=== PATIENT | male | born 1970 | race Caucasian/White ===

== ENCOUNTER 2018-06-16 06:53 | Inpatient (IN) | payer MEDICAID ==
[2018-06-16] VITALS (46 sets, daily range): BP systolic 103–160; BP diastolic 53–109
[~2018-06-16] VITALS: Ht 182.9 cm; Wt 90.6 kg
[2018-06-16] MEDS ORDERED: SUCCINYLCHOLINE CHLORIDE 20 MG/ML 10ML VIAL IV ONE ×3 (07:02→07:15)
[2018-06-16] MEDS ORDERED: ETOMIDATE (2MG/ML) 20ML VIAL IV ONE ×3 (07:02→07:15)
[2018-06-16] MEDS ORDERED: PROPOFOL 100 ML IV ONE (07:06)
[2018-06-16] MEDS ORDERED: MIDAZOLAM DRIP 50 mg/50mL 50 ML IV ONE (07:06)
[2018-06-16] MEDS ORDERED: PROPOFOL 100 ML IV SCH (07:08)
[2018-06-16] MEDS ORDERED: MIDAZOLAM DRIP 50 mg/50mL 50 ML IV SCH (07:29)
[2018-06-16 08:29] LABS: Basophils # (auto) 0 uL; Eosinophils # (auto) 0 uL; Nucleated Red Blood Cells % 0.2 %; White Blood Cell 7.4 10^3/uL (4.4-10.8)
[2018-06-16 08:31] LABS: Basophils % (auto) 0.5 % (0.0-2.0); Eosinophils % (auto) 0.1 % (0.0-7.0); Hematocrit 52.7 % (41.0-53.0); Hemoglobin 16.3 g/dL (13.5-17.5); Lymphocytes # (auto) 0.3 uL; Lymphocytes % (auto) 4.6 % (10.0-50.0); Mean Corpuscular Hemoglobin 28.7 pg (28.0-32.0); Mean Corpuscular Volume 92.5 fL (80.0-100.0); Monocytes # (auto) 0.6 uL; Monocytes % (auto) 8.6 % (0.0-12.0); Neutrophils # (auto) 6.4 uL; Neutrophils % (auto) 86.2 % (37.0-80.0); Platelet Count (auto) 135 10^3/uL (140-450); Red Cell Distribution Width 18.2 % (11.8-14.3)
[2018-06-16 08:46] LABS: Alanine Aminotransferase 31 U/L (16-61); Albumin 2.2 g/dL (3.4-5.0); Anion Gap 5 (5-15); Aspartate Aminotransferase 40 U/L (15-37); BUN/Creatinine Ratio 29.3; Blood Alcohol < 3.0 mg/dL (0-5); Blood Urea Nitrogen 29 mg/dL (7-18); Calcium 8.2 mg/dL (8.5-10.1); Chloride 85 mmol/L (98-107); GFR African American 105 mL/min; GFR Non-African American 86 mL/min; Glucose 101 mg/dL (74-106); Potassium 4.9 mmol/L (3.5-5.1); Sodium 135 mmol/L (136-145)
[2018-06-16 08:48] LABS: Carbon Dioxide 45 mmol/L (21-32)
[2018-06-16 08:50] LABS: Alkaline Phosphatase 67 U/L (45-117); Bilirubin, Total 1.1 mg/dL (0.2-1.0); Total Protein 5.9 g/dL (6.4-8.2)
[2018-06-16 09:01] LABS: INR 1.05 (0.9-1.15); Partial Thromboplastin Time 26.1 sec (23.78-33.04); Prothrombin Time 11.2 sec (9.27-12.13)
[2018-06-16 09:03] LABS: Urine Bacteria NONE SEEN /hpf (None Seen); Urine Blood TRACE /uL (Negative); Urine Hyaline Cast MOD /lpf (0 - 2); Urine Mucus FEW (None Seen); Urine Specific Gravity 1.025 (1.001-1.035); Urine WBC 4 /hpf (0 - 3)
[2018-06-16 09:04] LABS: Alcohol, Urine < 3.0 mg/dL (0-5); Amphetamine Screen, Urine POSITIVE (NEGATIVE); Barbiturate Scree,Urine NEGATIVE (NEGATIVE); Benzodiazephine Screen, Urine NEGATIVE (NEGATIVE); Cannabinoid Screen, Urine NEGATIVE (NEGATIVE); Cocaine Screen, Urine NEGATIVE (NEGATIVE); Opiate Scree,Urine NEGATIVE (NEGATIVE); Phencyclidine Screen, Urine NEGATIVE (NEGATIVE)
[2018-06-16] MEDS ORDERED: IOHEXOL 300 MG/ML 100ML BOTTLE IJ ONE (09:54)
[2018-06-16] MEDS ORDERED: NOREPINEPHRINE 8 MG/250ML KIT 250 ML IV ONE (11:00)
[2018-06-16] MEDS ORDERED: ALBUTEROL SULF 2.5 MG/0.5ML(0.5%) NEB SOLN NEB ONE (11:45)
[2018-06-16] MEDS ORDERED: FUROSEMIDE 20 MG/2 ML VIAL IV ONE (11:45)
[2018-06-16] MEDS ORDERED: ENOXAPARIN SOD 150 MG/1 ML SYRINGE SC ONE (12:15)
[2018-06-16] MEDS ORDERED: methylPREDNISolone SOD SUCC 125 MG/2 ML VL IV ONE (12:30)
[2018-06-16] MEDS ORDERED: ACETYLCYSTEINE ORAL for CIN 20%(200MG/ML) 4ML PO ONE (12:30)
[2018-06-16] MEDS ORDERED: PIPERACILLIN-TAZOB 3.375GM 100 ML IV ONE (12:30)
[2018-06-16] MEDS ORDERED: hydrOXYzine HCL 25 MG/ML VL IM ONE (12:30)
[2018-06-16] MEDS ORDERED: IOHEXOL 350 MG/ML 100ML IJ ONE (12:32)
[2018-06-16] MEDS ORDERED: ACETYLCYSTEINE ORAL for CIN 20%(200MG/ML) 4ML GT ONE (13:00)
[2018-06-16] MEDS ORDERED: VANCOMYCIN PER PHARMACY 0 MG IV SCH (13:45)
[2018-06-16] MEDS ORDERED: SODIUM CHLORIDE 0.9% 1,000 ML IV SCH (14:07)
[2018-06-16] MEDS ORDERED: NITROGLYCERIN 0.4 MG SL TAB SL PRN (14:15)
[2018-06-16] MEDS ORDERED: MORPHINE SULF INJ 2 MG/ML SYRINGE 1ML IV PRN ×2 (14:15)
[2018-06-16] MEDS: PROPOFOL 100 ML IV SCH ×2 (17:55→19:35)
[2018-06-16] MEDS: VANCOMYCIN 1GM/250ML 250 ML IV SCH ×2 (17:56→23:00)
[2018-06-16] MEDS: MIDAZOLAM DRIP 50 mg/50mL 50 ML IV SCH ×2 (17:56→21:08)
[2018-06-16] MEDS: IPRATROPIUM BROM 0.5 MG/2.5ML INH SOL NEB SCH (18:38)
[2018-06-16] MEDS: ALBUTEROL SULF 2.5 MG/0.5ML(0.5%) NEB SOLN NEB SCH (18:38)
[2018-06-16] MEDS: ACETAMINOPHEN 650 MG RECT SUPP PR PRN (18:43)
[2018-06-16] MEDS: PIPERACILLIN-TAZOB 3.375GM 100 ML IV SCH (19:10)
[2018-06-17] VITALS (102 sets, daily range): BP systolic 110–165; BP diastolic 51–100
[2018-06-17] MEDS: IPRATROPIUM BROM 0.5 MG/2.5ML INH SOL NEB SCH ×4 (00:55→19:10)
[2018-06-17] MEDS: ALBUTEROL SULF 2.5 MG/0.5ML(0.5%) NEB SOLN NEB SCH ×4 (00:55→19:10)
[2018-06-17] MEDS: MIDAZOLAM DRIP 50 mg/50mL 50 ML IV SCH ×5 (04:02→23:05)
[2018-06-17 04:17] LABS: Basophils # (auto) 0 uL; Basophils % (auto) 0.2 % (0.0-2.0); Eosinophils # (auto) 0 uL; Hematocrit 51.4 % (41.0-53.0); Hemoglobin 16.4 g/dL (13.5-17.5); Lymphocytes # (auto) 0.9 uL; Lymphocytes % (auto) 10.4 % (10.0-50.0); Mean Corpuscular Hemoglobin 28.4 pg (28.0-32.0); Mean Corpuscular Hgb Conc. 31.9 g/dL (32.0-36.0); Monocytes # (auto) 1.2 uL; Monocytes % (auto) 14.5 % (0.0-12.0); Neutrophils # (auto) 6.2 uL; Neutrophils % (auto) 74.9 % (37.0-80.0); Nucleated Red Blood Cells % 0.1 %; Platelet Count (auto) 118 10^3/uL (140-450); Red Blood Cells 5.78 10^6/uL (4.5-5.90); Red Cell Distribution Width 17.7 % (11.8-14.3); White Blood Cell 8.3 10^3/uL (4.4-10.8)
[2018-06-17 04:36] LABS: Albumin 2.3 g/dL (3.4-5.0); BUN/Creatinine Ratio 24.7; Calcium 8.2 mg/dL (8.5-10.1); Potassium 3.4 mmol/L (3.5-5.1)
[2018-06-17 04:39] LABS: Bilirubin, Total 1.1 mg/dL (0.2-1.0); Total Protein 5.2 g/dL (6.4-8.2)
[2018-06-17] MEDS: PIPERACILLIN-TAZOB 3.375GM 100 ML IV SCH ×4 (05:56→18:44)
[2018-06-17] MEDS: VANCOMYCIN 1GM/250ML 250 ML IV SCH ×3 (06:50→23:00)
[2018-06-17] MEDS ORDERED: AMIODARONE HCL 900 MG in DEXTROSE 500 ML IV SCH (08:26)
[2018-06-17] MEDS ORDERED: POTASSIUM CHL 20MEQ/100ML 100 ML IV ONE ×2 (08:30→15:30)
[2018-06-17] MEDS ORDERED: AMIODARONE HCL 150 MG in D5W 5% 100 ML IV ONE (08:30)
[2018-06-17] MEDS ORDERED: MAGNESIUM SULFATE 1GM/100ML 100 ML IV ONE (08:30)
[2018-06-17] MEDS: PROPOFOL 100 ML IV SCH (08:39)
[2018-06-17] MEDS: AMIODARONE HCL 900 MG in DEXTROSE 500 ML IV SCH ×2 (09:06→15:15)
[2018-06-17] MEDS: ENOXAPARIN SOD 40 MG/0.4 ML SYRINGE SC SCH (09:51)
[2018-06-17] MEDS: SPIRONOLACTONE 25 MG TAB PO SCH (09:53)
[2018-06-17] MEDS ORDERED: POTASSIUM CHL 20 Meq TABLET PO SCH (10:00)
[2018-06-17] MEDS: PANTOPRAZOLE 40 MG/10 ML VIAL IV SCH (11:49)
[2018-06-17] MEDS ORDERED: PHENYTOIN IV DILANTIN 1,000 MG in SODIUM CHL 0.9% 250 ML IV ONE (17:30)
[2018-06-17] MEDS ORDERED: LORazepam 2MG/ML-1ML VIAL IV PRN (17:30)
[2018-06-17] MEDS ORDERED: methylPREDNISolone SOD SUCC 125 MG/2 ML VL IV ONE (18:45)
[2018-06-17] MEDS ORDERED: DEXTROSE (50%) 50ML SYRG IV PRN (18:45)
[2018-06-17] MEDS: FUROSEMIDE 40 MG/4 ML VIAL IV SCH (18:45)
[2018-06-17] MEDS: Jevity 1.2 Cal/Fiber 1 Liter GT SCH (20:03)
[2018-06-17] MEDS: METOPROLOL TARTRATE 50 MG TAB PO SCH (22:00)
[2018-06-17] MEDS: InsuLIN REG 1unit/0.01ml Soln (100units/ml) SC SCH (22:00)
[2018-06-17] MEDS: methylPREDNISolone SOD SUCC 125 MG/2 ML VL IV SCH (22:00)
[2018-06-18] VITALS (90 sets, daily range): BP systolic 104–142; BP diastolic 43–100
[2018-06-18] MEDS: ALBUTEROL SULF 2.5 MG/0.5ML(0.5%) NEB SOLN NEB SCH ×4 (00:23→18:09)
[2018-06-18] MEDS: IPRATROPIUM BROM 0.5 MG/2.5ML INH SOL NEB SCH ×4 (00:23→18:09)
[2018-06-18] MEDS: MIDAZOLAM DRIP 50 mg/50mL 50 ML IV SCH ×5 (03:07→20:38)
[2018-06-18 03:53] LABS: Basophils # (auto) 0 uL; Basophils % (auto) 0.1 % (0.0-2.0); Eosinophils # (auto) 0 uL; Eosinophils % (auto) 0.1 % (0.0-7.0); Hematocrit 52.7 % (41.0-53.0); Hemoglobin 16.6 g/dL (13.5-17.5); Lymphocytes # (auto) 0.3 uL; Lymphocytes % (auto) 4.2 % (10.0-50.0); Mean Corpuscular Hemoglobin 27.9 pg (28.0-32.0); Mean Corpuscular Hgb Conc. 31.5 g/dL (32.0-36.0); Mean Corpuscular Volume 88.7 fL (80.0-100.0); Monocytes # (auto) 0.1 uL; Monocytes % (auto) 1.6 % (0.0-12.0); Neutrophils # (auto) 6.2 uL; Nucleated Red Blood Cells % 0.1 %; Platelet Count (auto) 147 10^3/uL (140-450); Red Blood Cells 5.94 10^6/uL (4.5-5.90); Red Cell Distribution Width 17.8 % (11.8-14.3); White Blood Cell 6.6 10^3/uL (4.4-10.8)
[2018-06-18 04:17] LABS: Albumin 2.4 g/dL (3.4-5.0); BUN/Creatinine Ratio 23.4; Bilirubin, Total 1.3 mg/dL (0.2-1.0); Calcium 8.3 mg/dL (8.5-10.1); Potassium 3.8 mmol/L (3.5-5.1)
[2018-06-18] MEDS: PROPOFOL 100 ML IV SCH ×3 (05:05→20:37)
[2018-06-18] MEDS: PIPERACILLIN-TAZOB 3.375GM 100 ML IV SCH ×4 (06:00→18:15)
[2018-06-18] MEDS: FUROSEMIDE 40 MG/4 ML VIAL IV SCH ×2 (06:00→18:10)
[2018-06-18] MEDS: methylPREDNISolone SOD SUCC 125 MG/2 ML VL IV SCH ×3 (06:00→22:18)
[2018-06-18] MEDS: ACCU-CHEK COMFORT CURVE STRIP VI SCH ×4 (06:00→18:00)
[2018-06-18] MEDS: InsuLIN REG 1unit/0.01ml Soln (100units/ml) SC SCH ×3 (06:00→18:05)
[2018-06-18] MEDS: VANCOMYCIN 1GM/250ML 250 ML IV SCH (07:00)
[2018-06-18] MEDS: METOPROLOL TARTRATE 50 MG TAB PO SCH (10:00)
[2018-06-18] MEDS: ENOXAPARIN SOD 40 MG/0.4 ML SYRINGE SC SCH (10:14)
[2018-06-18] MEDS: PANTOPRAZOLE 40 MG/10 ML VIAL IV SCH (10:14)
[2018-06-18] MEDS: POTASSIUM EFFERVESENT TAB 25 MEQ GT SCH (10:14)
[2018-06-18] MEDS: SPIRONOLACTONE 25 MG TAB PO SCH (10:15)
[2018-06-18] MEDS: VANCOMYCIN 1,500 MG in D5W 5% 250 ML IV SCH ×2 (10:27→22:19)
[2018-06-18] MEDS ORDERED: DEXTROSE (50%) 50ML SYRG IV PRN (12:00)
[2018-06-18] MEDS: METOPROLOL TARTRATE 25 MG TAB PO SCH (22:18)
[2018-06-19] VITALS (108 sets, daily range): BP systolic 109–163; BP diastolic 49–103
[2018-06-19] MEDS: ALBUTEROL SULF 2.5 MG/0.5ML(0.5%) NEB SOLN NEB SCH ×4 (00:26→18:27)
[2018-06-19] MEDS: MIDAZOLAM DRIP 50 mg/50mL 50 ML IV SCH ×7 (00:26→21:26)
[2018-06-19] MEDS: IPRATROPIUM BROM 0.5 MG/2.5ML INH SOL NEB SCH ×4 (00:26→18:27)
[2018-06-19] MEDS: PIPERACILLIN-TAZOB 3.375GM 100 ML IV SCH ×4 (00:26→18:00)
[2018-06-19] MEDS: ACCU-CHEK COMFORT CURVE STRIP VI SCH ×5 (00:30→23:58)
[2018-06-19] MEDS: InsuLIN REG 1unit/0.01ml Soln (100units/ml) SC SCH ×4 (00:33→18:37)
[2018-06-19] MEDS: PROPOFOL 100 ML IV SCH ×6 (01:24→21:27)
[2018-06-19 02:29] LABS: Basophils # (auto) 0.2 uL; Basophils % (auto) 1.2 % (0.0-2.0); Eosinophils # (auto) 0 uL; Hematocrit 52.7 % (41.0-53.0); Hemoglobin 16.8 g/dL (13.5-17.5); Lymphocytes # (auto) 0.3 uL; Lymphocytes % (auto) 2.4 % (10.0-50.0); Mean Corpuscular Hemoglobin 28.3 pg (28.0-32.0); Mean Corpuscular Hgb Conc. 31.8 g/dL (32.0-36.0); Mean Corpuscular Volume 89.1 fL (80.0-100.0); Monocytes # (auto) 0.5 uL; Monocytes % (auto) 4.1 % (0.0-12.0); Neutrophils # (auto) 12.1 uL; Neutrophils % (auto) 92.3 % (37.0-80.0); Nucleated Red Blood Cells % 0.1 %; Platelet Count (auto) 142 10^3/uL (140-450); Red Blood Cells 5.92 10^6/uL (4.5-5.90); Red Cell Distribution Width 17.6 % (11.8-14.3); White Blood Cell 13.1 10^3/uL (4.4-10.8)
[2018-06-19 02:46] LABS: Albumin 2.1 g/dL (3.4-5.0); Calcium 8.2 mg/dL (8.5-10.1); Potassium 4.3 mmol/L (3.5-5.1)
[2018-06-19 02:48] LABS: Bilirubin, Total 0.9 mg/dL (0.2-1.0)
[2018-06-19] MEDS: methylPREDNISolone SOD SUCC 125 MG/2 ML VL IV SCH ×3 (06:29→21:37)
[2018-06-19] MEDS: FUROSEMIDE 40 MG/4 ML VIAL IV SCH (06:29)
[2018-06-19] MEDS: POTASSIUM EFFERVESENT TAB 25 MEQ GT SCH (11:10)
[2018-06-19] MEDS: VANCOMYCIN 1,500 MG in D5W 5% 250 ML IV SCH ×2 (11:11→22:12)
[2018-06-19] MEDS: LEVOFLOXACIN 750MG 150 ML IV SCH (11:11)
[2018-06-19] MEDS: PANTOPRAZOLE 40 MG/10 ML VIAL IV SCH (11:11)
[2018-06-19] MEDS: METOPROLOL TARTRATE 25 MG TAB PO SCH ×2 (11:12→21:37)
[2018-06-19] MEDS: ENOXAPARIN SOD 40 MG/0.4 ML SYRINGE SC SCH (11:12)
[2018-06-19] MEDS ORDERED: SODIUM CHL 0.9% IV SCH (11:15)
[2018-06-19] MEDS ORDERED: [UNRECOGNIZED DRUG - OTHER] IV SCH (11:15)
[2018-06-19] MEDS ORDERED: THIAMINE INJ 100 MG, MULTIPLE VITAMIN 10 ML, FOLIC ACID 1 MG, MAGNESIUM SULF SDV 50% 8 ... IV SCH ×5 (12:00)
[2018-06-19] MEDS: FUROSEMIDE INJECTION 100 MG in D5W 5% 90 ML IV SCH (16:45)
[2018-06-19] MEDS: SPIRONOLACTONE 25 MG TAB PO SCH (18:01)
[2018-06-20] VITALS (107 sets, daily range): BP systolic 94–154; BP diastolic 36–94
[2018-06-20] MEDS: InsuLIN REG 1unit/0.01ml Soln (100units/ml) SC SCH ×5 (00:07→23:36)
[2018-06-20] MEDS: PIPERACILLIN-TAZOB 3.375GM 100 ML IV SCH ×5 (00:14→23:32)
[2018-06-20] MEDS: ALBUTEROL SULF 2.5 MG/0.5ML(0.5%) NEB SOLN NEB SCH ×4 (00:16→18:30)
[2018-06-20] MEDS: IPRATROPIUM BROM 0.5 MG/2.5ML INH SOL NEB SCH ×4 (00:17→18:30)
[2018-06-20] MEDS: MIDAZOLAM DRIP 50 mg/50mL 50 ML IV SCH ×6 (00:27→21:13)
[2018-06-20] MEDS: PROPOFOL 100 ML IV SCH ×6 (01:25→22:42)
[2018-06-20 04:02] LABS: Basophils # (auto) 0 uL; Basophils % (auto) 0.1 % (0.0-2.0); Eosinophils # (auto) 0 uL; Hemoglobin 16.3 g/dL (13.5-17.5); Lymphocytes # (auto) 0.3 uL; Lymphocytes % (auto) 2.6 % (10.0-50.0); Mean Corpuscular Hemoglobin 28.5 pg (28.0-32.0); Mean Corpuscular Hgb Conc. 31.9 g/dL (32.0-36.0); Mean Corpuscular Volume 89.5 fL (80.0-100.0); Monocytes # (auto) 0.7 uL; Monocytes % (auto) 7.2 % (0.0-12.0); Neutrophils # (auto) 9.2 uL; Neutrophils % (auto) 90.1 % (37.0-80.0); Platelet Count (auto) 147 10^3/uL (140-450); Red Cell Distribution Width 17.7 % (11.8-14.3); White Blood Cell 10.2 10^3/uL (4.4-10.8)
[2018-06-20 04:24] LABS: Potassium 4.7 mmol/L (3.5-5.1)
[2018-06-20 04:27] LABS: Albumin 2.1 g/dL (3.4-5.0); BUN/Creatinine Ratio 33.7
[2018-06-20 04:30] LABS: Bilirubin, Total 0.9 mg/dL (0.2-1.0); Total Protein 5.8 g/dL (6.4-8.2)
[2018-06-20] MEDS: ACCU-CHEK COMFORT CURVE STRIP VI SCH ×3 (05:52→17:52)
[2018-06-20] MEDS: methylPREDNISolone SOD SUCC 125 MG/2 ML VL IV SCH ×3 (05:59→21:09)
[2018-06-20] MEDS: SPIRONOLACTONE 25 MG TAB PO SCH ×2 (06:00→17:51)
[2018-06-20] MEDS: ENOXAPARIN SOD 40 MG/0.4 ML SYRINGE SC SCH (10:01)
[2018-06-20] MEDS: POTASSIUM EFFERVESENT TAB 25 MEQ GT SCH (10:01)
[2018-06-20] MEDS: PANTOPRAZOLE 40 MG/10 ML VIAL IV SCH (10:01)
[2018-06-20] MEDS: DIGOXIN 0.25 MG TAB PO SCH (10:02)
[2018-06-20] MEDS: METOPROLOL TARTRATE 25 MG TAB PO SCH ×2 (10:02→21:10)
[2018-06-20] MEDS: LEVOFLOXACIN 750MG 150 ML IV SCH (10:17)
[2018-06-20] MEDS: VANCOMYCIN 1,500 MG in D5W 5% 250 ML IV SCH ×2 (10:54→21:32)
[2018-06-20] MEDS: FUROSEMIDE INJECTION 100 MG in D5W 5% 90 ML IV SCH (12:17)
[2018-06-21] VITALS (105 sets, daily range): BP systolic 109–155; BP diastolic 46–95
[2018-06-21] MEDS: IPRATROPIUM BROM 0.5 MG/2.5ML INH SOL NEB SCH ×5 (00:21→18:33)
[2018-06-21] MEDS: ALBUTEROL SULF 2.5 MG/0.5ML(0.5%) NEB SOLN NEB SCH ×5 (00:21→18:33)
[2018-06-21] MEDS: MIDAZOLAM DRIP 50 mg/50mL 50 ML IV SCH ×6 (01:28→23:52)
[2018-06-21] MEDS: PROPOFOL 100 ML IV SCH ×5 (01:57→18:22)
[2018-06-21 04:02] LABS: Basophils # (auto) 0 uL; Basophils % (auto) 0.2 % (0.0-2.0); Eosinophils # (auto) 0 uL; Eosinophils % (auto) 0.1 % (0.0-7.0); Hemoglobin 16.8 g/dL (13.5-17.5); Lymphocytes # (auto) 0.6 uL; Lymphocytes % (auto) 6.1 % (10.0-50.0); Mean Corpuscular Hgb Conc. 32.4 g/dL (32.0-36.0); Mean Corpuscular Volume 89.5 fL (80.0-100.0); Monocytes # (auto) 1.3 uL; Monocytes % (auto) 13.2 % (0.0-12.0); Neutrophils % (auto) 80.4 % (37.0-80.0); Nucleated Red Blood Cells % 0.1 %; Platelet Count (auto) 151 10^3/uL (140-450); Red Blood Cells 5.81 10^6/uL (4.5-5.90); Red Cell Distribution Width 17.4 % (11.8-14.3); White Blood Cell 9.9 10^3/uL (4.4-10.8)
[2018-06-21 04:17] LABS: Albumin 2.3 g/dL (3.4-5.0); Calcium 8.2 mg/dL (8.5-10.1); Potassium 4.4 mmol/L (3.5-5.1)
[2018-06-21 04:21] LABS: BUN/Creatinine Ratio 32.1; Bilirubin, Total 0.7 mg/dL (0.2-1.0); Total Protein 5.9 g/dL (6.4-8.2)
[2018-06-21] MEDS: SPIRONOLACTONE 25 MG TAB PO SCH ×2 (05:15→18:07)
[2018-06-21] MEDS: methylPREDNISolone SOD SUCC 125 MG/2 ML VL IV SCH ×3 (05:15→22:00)
[2018-06-21] MEDS: ACCU-CHEK COMFORT CURVE STRIP VI SCH ×5 (05:15→23:52)
[2018-06-21] MEDS: InsuLIN REG 1unit/0.01ml Soln (100units/ml) SC SCH ×4 (05:15→23:53)
[2018-06-21] MEDS: PIPERACILLIN-TAZOB 3.375GM 100 ML IV SCH ×4 (05:15→23:52)
[2018-06-21] MEDS: POTASSIUM EFFERVESENT TAB 25 MEQ GT SCH (10:00)
[2018-06-21] MEDS: PANTOPRAZOLE 40 MG/10 ML VIAL IV SCH (10:20)
[2018-06-21] MEDS: ENOXAPARIN SOD 40 MG/0.4 ML SYRINGE SC SCH (10:21)
[2018-06-21] MEDS: METOPROLOL TARTRATE 25 MG TAB PO SCH ×2 (10:23→22:00)
[2018-06-21] MEDS: DIGOXIN 0.25 MG TAB PO SCH (10:24)
[2018-06-21] MEDS: VANCOMYCIN 1,500 MG in D5W 5% 250 ML IV SCH ×2 (10:42→22:00)
[2018-06-21] MEDS ORDERED: AMIODARONE HCL 150 MG in D5W 5% 100 ML IV ONE (11:00)
[2018-06-21] MEDS ORDERED: AMIODARONE HCL 900 MG in DEXTROSE 500 ML IV SCH ×2 (11:03→17:03)
[2018-06-21] MEDS: Jevity 1.2 Cal/Fiber 1 Liter GT SCH (12:03)
[2018-06-21] MEDS: LEVOFLOXACIN 750MG 150 ML IV SCH (13:31)
[2018-06-21] MEDS: FUROSEMIDE INJECTION 100 MG in D5W 5% 90 ML IV SCH ×2 (13:45→19:00)
[2018-06-21] MEDS: fentaNYL Drip 2500mCg/250mlNS 250 ML IV SCH (21:00)
[2018-06-21] MEDS: AMIODARONE HCL 200 MG TAB PO SCH (22:00)
[2018-06-22] VITALS (101 sets, daily range): BP systolic 100–149; BP diastolic 41–79
[2018-06-22] MEDS: ALBUTEROL SULF 2.5 MG/0.5ML(0.5%) NEB SOLN NEB SCH ×4 (00:15→18:37)
[2018-06-22] MEDS: IPRATROPIUM BROM 0.5 MG/2.5ML INH SOL NEB SCH ×4 (00:15→18:37)
[2018-06-22] MEDS: MIDAZOLAM DRIP 50 mg/50mL 50 ML IV SCH ×4 (03:00→22:30)
[2018-06-22 04:44] LABS: Basophils # (auto) 0 uL; Basophils % (auto) 0.1 % (0.0-2.0); Eosinophils # (auto) 0 uL; Hematocrit 52.4 % (41.0-53.0); Hemoglobin 16.8 g/dL (13.5-17.5); Lymphocytes # (auto) 0.2 uL; Mean Corpuscular Hgb Conc. 32.1 g/dL (32.0-36.0); Mean Corpuscular Volume 90.5 fL (80.0-100.0); Monocytes # (auto) 0.6 uL; Monocytes % (auto) 8.2 % (0.0-12.0); Neutrophils # (auto) 6.6 uL; Neutrophils % (auto) 88.7 % (37.0-80.0); Nucleated Red Blood Cells % 0.1 %; Platelet Count (auto) 155 10^3/uL (140-450); Red Blood Cells 5.79 10^6/uL (4.5-5.90); Red Cell Distribution Width 17.9 % (11.8-14.3); White Blood Cell 7.4 10^3/uL (4.4-10.8)
[2018-06-22 04:59] LABS: Albumin 2.4 g/dL (3.4-5.0); Calcium 8.5 mg/dL (8.5-10.1); Potassium 4.5 mmol/L (3.5-5.1)
[2018-06-22 05:08] LABS: BUN/Creatinine Ratio 44.6; Bilirubin, Total 0.8 mg/dL (0.2-1.0); Total Protein 6.1 g/dL (6.4-8.2)
[2018-06-22] MEDS: methylPREDNISolone SOD SUCC 125 MG/2 ML VL IV SCH ×3 (06:15→22:04)
[2018-06-22] MEDS: PIPERACILLIN-TAZOB 3.375GM 100 ML IV SCH ×3 (06:15→17:28)
[2018-06-22] MEDS: SPIRONOLACTONE 25 MG TAB PO SCH ×2 (06:16→17:28)
[2018-06-22] MEDS: InsuLIN REG 1unit/0.01ml Soln (100units/ml) SC SCH ×3 (06:16→17:42)
[2018-06-22] MEDS: ACCU-CHEK COMFORT CURVE STRIP VI SCH ×3 (06:16→17:28)
[2018-06-22] MEDS: PANTOPRAZOLE 40 MG/10 ML VIAL IV SCH (09:53)
[2018-06-22] MEDS: THIAMINE 100mg/ml INJ (200mg/2ml VIAL) IV SCH (09:53)
[2018-06-22] MEDS: POTASSIUM EFFERVESENT TAB 25 MEQ GT SCH (09:53)
[2018-06-22] MEDS: LEVOFLOXACIN 750MG 150 ML IV SCH (09:53)
[2018-06-22] MEDS: METOPROLOL TARTRATE 25 MG TAB PO SCH ×2 (09:54→22:00)
[2018-06-22] MEDS: ENOXAPARIN SOD 40 MG/0.4 ML SYRINGE SC SCH (09:54)
[2018-06-22] MEDS: AMIODARONE HCL 200 MG TAB PO SCH ×2 (09:54→22:05)
[2018-06-22] MEDS: DIGOXIN 0.125 MG TAB PO SCH (09:54)
[2018-06-22] MEDS: Jevity 1.2 Cal/Fiber 1 Liter GT SCH (10:18)
[2018-06-22] MEDS: VANCOMYCIN 1,500 MG in D5W 5% 250 ML IV SCH ×2 (11:36→22:06)
[2018-06-22] MEDS ORDERED: FUROSEMIDE 40 MG/4 ML VIAL IV ONE (13:00)
[2018-06-22] MEDS: fentaNYL Drip 2500mCg/250mlNS 250 ML IV SCH (17:28)
[2018-06-22] MEDS: FUROSEMIDE INJECTION 100 MG in D5W 5% 90 ML IV SCH (19:00)
[2018-06-23] VITALS (97 sets, daily range): BP systolic 102–137; BP diastolic 39–91
[2018-06-23] MEDS: PIPERACILLIN-TAZOB 3.375GM 100 ML IV SCH ×2 (00:04→06:26)
[2018-06-23] MEDS: ALBUTEROL SULF 2.5 MG/0.5ML(0.5%) NEB SOLN NEB SCH ×4 (00:07→17:55)
[2018-06-23] MEDS: IPRATROPIUM BROM 0.5 MG/2.5ML INH SOL NEB SCH ×4 (00:07→17:55)
[2018-06-23] MEDS: InsuLIN REG 1unit/0.01ml Soln (100units/ml) SC SCH ×4 (00:10→23:57)
[2018-06-23] MEDS: ACCU-CHEK COMFORT CURVE STRIP VI SCH ×4 (00:10→23:57)
[2018-06-23] MEDS: MIDAZOLAM DRIP 50 mg/50mL 50 ML IV SCH ×5 (01:43→20:15)
[2018-06-23] MEDS: Jevity 1.2 Cal/Fiber 1 Liter GT SCH ×2 (03:07→22:00)
[2018-06-23 04:38] LABS: Calcium 8.5 mg/dL (8.5-10.1); Potassium 4.3 mmol/L (3.5-5.1)
[2018-06-23 04:42] LABS: BUN/Creatinine Ratio 54.2
[2018-06-23] MEDS: SPIRONOLACTONE 25 MG TAB PO SCH (06:26)
[2018-06-23] MEDS: methylPREDNISolone SOD SUCC 125 MG/2 ML VL IV SCH ×3 (06:26→22:23)
[2018-06-23] MEDS: PROPOFOL 100 ML IV SCH (07:52)
[2018-06-23] MEDS: PANTOPRAZOLE 40 MG/10 ML VIAL IV SCH (11:04)
[2018-06-23] MEDS: fentaNYL Drip 2500mCg/250mlNS 250 ML IV SCH ×2 (11:12→23:00)
[2018-06-23] MEDS: THIAMINE 100mg/ml INJ (200mg/2ml VIAL) IV SCH (11:13)
[2018-06-23] MEDS: BUMETANIDE (0.25 MG/ML) INJ 10ML IV SCH (11:14)
[2018-06-23] MEDS: ENOXAPARIN SOD 40 MG/0.4 ML SYRINGE SC SCH (11:14)
[2018-06-23] MEDS: DIGOXIN 0.125 MG TAB PO SCH (11:15)
[2018-06-23] MEDS: LEVOFLOXACIN 750MG 150 ML IV SCH (11:15)
[2018-06-23] MEDS: METOPROLOL TARTRATE 25 MG TAB PO SCH ×2 (11:15→21:57)
[2018-06-23] MEDS: POTASSIUM EFFERVESENT TAB 25 MEQ GT SCH (11:16)
[2018-06-23 17:08] LABS: INR 0.97 (0.9-1.15); Partial Thromboplastin Time 25.4 sec (23.78-33.04); Prothrombin Time 10.4 sec (9.27-12.13)
[2018-06-23] MEDS: AMIODARONE HCL 200 MG TAB PO SCH (21:59)
[2018-06-23] MEDS ORDERED: AMIODARONE HCL 200 MG TAB PO SCH (22:00)
[2018-06-24] VITALS (106 sets, daily range): BP systolic 101–161; BP diastolic 39–101
[2018-06-24] MEDS: MIDAZOLAM DRIP 50 mg/50mL 50 ML IV SCH ×6 (00:06→21:09)
[2018-06-24] MEDS: ALBUTEROL SULF 2.5 MG/0.5ML(0.5%) NEB SOLN NEB SCH ×5 (00:38→22:04)
[2018-06-24] MEDS: IPRATROPIUM BROM 0.5 MG/2.5ML INH SOL NEB SCH ×5 (00:38→22:04)
[2018-06-24 04:08] LABS: Basophils # (auto) 0 uL; Basophils % (auto) 0.1 % (0.0-2.0); Eosinophils # (auto) 0 uL; Hematocrit 49.3 % (41.0-53.0); Hemoglobin 16.1 g/dL (13.5-17.5); Lymphocytes # (auto) 0.3 uL; Lymphocytes % (auto) 3.6 % (10.0-50.0); Mean Corpuscular Hemoglobin 29.1 pg (28.0-32.0); Mean Corpuscular Hgb Conc. 32.6 g/dL (32.0-36.0); Mean Corpuscular Volume 89.4 fL (80.0-100.0); Monocytes # (auto) 0.6 uL; Monocytes % (auto) 7.6 % (0.0-12.0); Neutrophils # (auto) 7.2 uL; Neutrophils % (auto) 88.7 % (37.0-80.0); Nucleated Red Blood Cells % 0.1 %; Platelet Count (auto) 192 10^3/uL (140-450); Red Blood Cells 5.52 10^6/uL (4.5-5.90); Red Cell Distribution Width 17.5 % (11.8-14.3); White Blood Cell 8.1 10^3/uL (4.4-10.8)
[2018-06-24 04:30] LABS: Albumin 2.4 g/dL (3.4-5.0); BUN/Creatinine Ratio 53.8; Calcium 8.5 mg/dL (8.5-10.1); Potassium 4.5 mmol/L (3.5-5.1)
[2018-06-24 04:33] LABS: Bilirubin, Total 0.8 mg/dL (0.2-1.0); Total Protein 5.7 g/dL (6.4-8.2)
[2018-06-24] MEDS: ACCU-CHEK COMFORT CURVE STRIP VI SCH ×3 (05:34→18:40)
[2018-06-24] MEDS: methylPREDNISolone SOD SUCC 125 MG/2 ML VL IV SCH ×3 (05:34→22:30)
[2018-06-24] MEDS: SPIRONOLACTONE 25 MG TAB PO SCH ×2 (05:34→18:43)
[2018-06-24] MEDS: InsuLIN REG 1unit/0.01ml Soln (100units/ml) SC SCH ×3 (05:46→18:40)
[2018-06-24] MEDS: PROPOFOL 100 ML IV SCH (08:19)
[2018-06-24] MEDS ORDERED: FLUMAZENIL 0.1 MG/ML INJ 10ML MDV IV ONE (08:23)
[2018-06-24] MEDS ORDERED: LIDOCAINE 2% (LOCAL ANESTH.) PF 5ml SDV ONE (08:23)
[2018-06-24] MEDS ORDERED: HYDROmorphone HCL 2 MG/ML VL ONE (08:23)
[2018-06-24] MEDS ORDERED: NALOXONE HCL 0.4 MG/ML VIAL ONE (08:23)
[2018-06-24] MEDS ORDERED: SODIUM CHLORIDE LOCK 30 ML ONE (08:23)
[2018-06-24] MEDS ORDERED: EPINEPHrine HCL 1 MG/1 ML AMP ONE (08:24)
[2018-06-24] MEDS ORDERED: GLYCOPYRROLATE 0.2 MG/ML 1ML VIAL ONE (08:24)
[2018-06-24] MEDS ORDERED: MIDAZOLAM HCL 5 MG/ML-1ML VIAL ONE (08:24)
[2018-06-24] MEDS ORDERED: LIDOCAINE HCL 2% TOP JELLY 5ML TOP ONE ×2 (08:25→08:40)
[2018-06-24] MEDS: THIAMINE 100mg/ml INJ (200mg/2ml VIAL) IV SCH (11:51)
[2018-06-24] MEDS: POTASSIUM EFFERVESENT TAB 25 MEQ GT SCH (11:51)
[2018-06-24] MEDS: PANTOPRAZOLE 40 MG/10 ML VIAL IV SCH (11:52)
[2018-06-24] MEDS: LEVOFLOXACIN 750MG 150 ML IV SCH (11:52)
[2018-06-24] MEDS: BUMETANIDE (0.25 MG/ML) INJ 10ML IV SCH (11:52)
[2018-06-24] MEDS: DIGOXIN 0.125 MG TAB PO SCH (13:09)
[2018-06-24] MEDS: AMIODARONE HCL 200 MG TAB PO SCH ×2 (13:09→22:00)
[2018-06-24] MEDS: ACETYLCYSTEINE 20%(200MG/ML) SOL 4ML NEB SCH ×3 (14:18→22:05)
[2018-06-24] MEDS: METOPROLOL TARTRATE 25 MG TAB PO SCH ×2 (14:43→22:00)
[2018-06-24 21:17] LABS: Magnesium 2.3 mg/dL (1.6-2.6); Potassium 4.6 mmol/L (3.5-5.1)
[2018-06-24] MEDS: fentaNYL Drip 2500mCg/250mlNS 250 ML IV SCH (22:00)
[2018-06-25] VITALS (102 sets, daily range): BP systolic 104–145; BP diastolic 39–83
[2018-06-25] MEDS: ACCU-CHEK COMFORT CURVE STRIP VI SCH ×5 (00:29→23:58)
[2018-06-25] MEDS: NOREPINEPHRINE 8 MG/250ML KIT 250 ML IV SCH (01:00)
[2018-06-25] MEDS: ALBUTEROL SULF 2.5 MG/0.5ML(0.5%) NEB SOLN NEB SCH ×6 (02:18→22:08)
[2018-06-25] MEDS: ACETYLCYSTEINE 20%(200MG/ML) SOL 4ML NEB SCH ×6 (02:18→22:08)
[2018-06-25] MEDS: IPRATROPIUM BROM 0.5 MG/2.5ML INH SOL NEB SCH ×6 (02:18→22:08)
[2018-06-25 05:35] LABS: Basophils # (auto) 0 uL; Basophils % (auto) 0.4 % (0.0-2.0); Eosinophils # (auto) 0 uL; Hematocrit 50.8 % (41.0-53.0); Hemoglobin 16.2 g/dL (13.5-17.5); Lymphocytes # (auto) 0.3 uL; Lymphocytes % (auto) 2.8 % (10.0-50.0); Mean Corpuscular Hemoglobin 28.7 pg (28.0-32.0); Mean Corpuscular Hgb Conc. 31.9 g/dL (32.0-36.0); Mean Corpuscular Volume 90.2 fL (80.0-100.0); Monocytes # (auto) 0.8 uL; Monocytes % (auto) 8.8 % (0.0-12.0); Neutrophils # (auto) 8.2 uL; Platelet Count (auto) 201 10^3/uL (140-450); Red Blood Cells 5.63 10^6/uL (4.5-5.90); Red Cell Distribution Width 17.4 % (11.8-14.3); White Blood Cell 9.4 10^3/uL (4.4-10.8)
[2018-06-25 05:56] LABS: Albumin 2.5 g/dL (3.4-5.0); BUN/Creatinine Ratio 56.3; Calcium 8.9 mg/dL (8.5-10.1); Potassium 4.6 mmol/L (3.5-5.1)
[2018-06-25 05:59] LABS: Bilirubin, Total 0.9 mg/dL (0.2-1.0)
[2018-06-25] MEDS: methylPREDNISolone SOD SUCC 125 MG/2 ML VL IV SCH ×3 (06:05→22:47)
[2018-06-25] MEDS: Jevity 1.2 Cal/Fiber 1 Liter GT SCH (06:06)
[2018-06-25] MEDS: InsuLIN REG 1unit/0.01ml Soln (100units/ml) SC SCH ×5 (06:06→23:58)
[2018-06-25] MEDS: MIDAZOLAM DRIP 50 mg/50mL 50 ML IV SCH ×6 (06:07→22:48)
[2018-06-25] MEDS: SPIRONOLACTONE 25 MG TAB PO SCH ×2 (06:30→18:50)
[2018-06-25] MEDS: PROPOFOL 100 ML IV SCH ×2 (07:39→17:38)
[2018-06-25] MEDS: fentaNYL Drip 2500mCg/250mlNS 250 ML IV SCH ×2 (07:57→19:05)
[2018-06-25] MEDS: DIGOXIN 0.125 MG TAB PO SCH (10:00)
[2018-06-25] MEDS: ENOXAPARIN SOD 40 MG/0.4 ML SYRINGE SC SCH (10:00)
[2018-06-25] MEDS: METOPROLOL TARTRATE 25 MG TAB PO SCH ×2 (10:00→22:00)
[2018-06-25] MEDS: AMIODARONE HCL 200 MG TAB PO SCH (10:00)
[2018-06-25] MEDS: POTASSIUM EFFERVESENT TAB 25 MEQ GT SCH (10:00)
[2018-06-25] MEDS ORDERED: LIDOCAINE 2% (LOCAL ANESTH.) PF 5ml SDV ONE (11:17)
[2018-06-25] MEDS ORDERED: IOHEXOL 350 MG/ML 100ML IJ ONE (11:17)
[2018-06-25] MEDS ORDERED: ANGIOMAX 250 MG VIAL IV ONE (12:02)
[2018-06-25] MEDS: THIAMINE 100mg/ml INJ (200mg/2ml VIAL) IV SCH (12:02)
[2018-06-25] MEDS: PANTOPRAZOLE 40 MG/10 ML VIAL IV SCH (12:02)
[2018-06-25] MEDS ORDERED: SODIUM CHL 0.9% 50 ML ONE (12:02)
[2018-06-25] MEDS: BUMETANIDE (0.25 MG/ML) INJ 10ML IV SCH (12:02)
[2018-06-25] MEDS: LEVOFLOXACIN 750MG 150 ML IV SCH (12:02)
[2018-06-25] MEDS: SACUBITRIL-VALSARTAN 24mg/26mg TAB PO SCH (22:00)
[2018-06-26] VITALS (102 sets, daily range): BP systolic 105–146; BP diastolic 38–84
[2018-06-26] MEDS: NOREPINEPHRINE 8 MG/250ML KIT 250 ML IV SCH (01:00)
[2018-06-26] MEDS: MIDAZOLAM DRIP 50 mg/50mL 50 ML IV SCH ×4 (02:09→18:13)
[2018-06-26] MEDS: ALBUTEROL SULF 2.5 MG/0.5ML(0.5%) NEB SOLN NEB SCH ×6 (02:16→22:25)
[2018-06-26] MEDS: IPRATROPIUM BROM 0.5 MG/2.5ML INH SOL NEB SCH ×6 (02:16→22:25)
[2018-06-26] MEDS: ACETYLCYSTEINE 20%(200MG/ML) SOL 4ML NEB SCH ×6 (02:17→22:25)
[2018-06-26 04:34] LABS: Albumin 2.6 g/dL (3.4-5.0); BUN/Creatinine Ratio 47.5; Potassium 4.1 mmol/L (3.5-5.1); Total Protein 5.9 g/dL (6.4-8.2)
[2018-06-26] MEDS: SPIRONOLACTONE 25 MG TAB PO SCH ×2 (05:18→18:58)
[2018-06-26] MEDS: methylPREDNISolone SOD SUCC 125 MG/2 ML VL IV SCH ×3 (05:18→22:50)
[2018-06-26] MEDS: ACCU-CHEK COMFORT CURVE STRIP VI SCH ×3 (05:19→18:00)
[2018-06-26] MEDS: InsuLIN REG 1unit/0.01ml Soln (100units/ml) SC SCH ×3 (06:30→18:00)
[2018-06-26] MEDS: PROPOFOL 100 ML IV SCH ×2 (07:14→14:15)
[2018-06-26] MEDS: BUMETANIDE (0.25 MG/ML) INJ 10ML IV SCH (09:51)
[2018-06-26] MEDS: THIAMINE 100mg/ml INJ (200mg/2ml VIAL) IV SCH (09:52)
[2018-06-26] MEDS: PANTOPRAZOLE 40 MG/10 ML VIAL IV SCH (09:52)
[2018-06-26] MEDS: ENOXAPARIN SOD 40 MG/0.4 ML SYRINGE SC SCH (09:52)
[2018-06-26] MEDS: LEVOFLOXACIN 750MG 150 ML IV SCH (09:52)
[2018-06-26] MEDS: POTASSIUM EFFERVESENT TAB 25 MEQ GT SCH (09:55)
[2018-06-26] MEDS: SACUBITRIL-VALSARTAN 24mg/26mg TAB PO SCH ×2 (09:56→22:00)
[2018-06-26] MEDS: AMIODARONE HCL 200 MG TAB PO SCH (09:56)
[2018-06-26] MEDS: METOPROLOL TARTRATE 25 MG TAB PO SCH ×2 (10:00→22:00)
[2018-06-26] MEDS: DIGOXIN 0.125 MG TAB PO SCH (10:00)
[2018-06-26] MEDS: METOCLOPRAMIDE HCL 5MG/ml INJ 2ml VIAL IV SCH ×2 (14:13→22:48)
[2018-06-26] MEDS ORDERED: AMIODARONE HCL 150 MG in D5W 5% 100 ML IV ONE (16:00)
[2018-06-26] MEDS ORDERED: AMIODARONE HCL (50 MG/ ML) 3 ML VIAL IV ONE (16:02)
[2018-06-26] MEDS: fentaNYL Drip 2500mCg/250mlNS 250 ML IV SCH (18:12)
[2018-06-27] VITALS (106 sets, daily range): BP systolic 106–154; BP diastolic 36–93
[2018-06-27] MEDS: NOREPINEPHRINE 8 MG/250ML KIT 250 ML IV SCH (01:00)
[2018-06-27] MEDS: ACETYLCYSTEINE 20%(200MG/ML) SOL 4ML NEB SCH ×6 (02:32→22:07)
[2018-06-27] MEDS: IPRATROPIUM BROM 0.5 MG/2.5ML INH SOL NEB SCH ×6 (02:32→22:06)
[2018-06-27] MEDS: ALBUTEROL SULF 2.5 MG/0.5ML(0.5%) NEB SOLN NEB SCH ×6 (02:33→22:06)
[2018-06-27 04:04] LABS: Hematocrit 49.9 % (41.0-53.0); Hemoglobin 15.9 g/dL (13.5-17.5); Mean Corpuscular Hemoglobin 28.4 pg (28.0-32.0); Mean Corpuscular Hgb Conc. 31.9 g/dL (32.0-36.0); Mean Corpuscular Volume 89.1 fL (80.0-100.0); Platelet Count (auto) 223 10^3/uL (140-450); Red Cell Distribution Width 17.3 % (11.8-14.3); White Blood Cell 10.7 10^3/uL (4.4-10.8)
[2018-06-27 04:07] LABS: Band Neutrophils % (manual) 0; Basophils % (manual) 0 (0.0-2.0); Blast Cells 0; Eosinophils % (manual) 0 (0-7); Metamyelocytes % 0; Myelocytes % 0; Promyelocytes % 0; Reactive Lymphocytes 0
[2018-06-27 04:26] LABS: Albumin 2.7 g/dL (3.4-5.0); BUN/Creatinine Ratio 47.3; Bilirubin, Total 1.3 mg/dL (0.2-1.0); Potassium 4.1 mmol/L (3.5-5.1)
[2018-06-27 04:40] LABS: Lymphocytes % (manual) 2 (10.0-50.0); Monocytes % (manual) 4 (0-12)
[2018-06-27] MEDS: InsuLIN REG 1unit/0.01ml Soln (100units/ml) SC SCH ×4 (06:00→17:46)
[2018-06-27] MEDS: METOCLOPRAMIDE HCL 5MG/ml INJ 2ml VIAL IV SCH ×3 (06:28→22:56)
[2018-06-27] MEDS: SPIRONOLACTONE 25 MG TAB PO SCH ×2 (06:28→17:49)
[2018-06-27] MEDS: methylPREDNISolone SOD SUCC 125 MG/2 ML VL IV SCH ×3 (06:28→22:56)
[2018-06-27] MEDS: ACCU-CHEK COMFORT CURVE STRIP VI SCH ×4 (06:29→17:45)
[2018-06-27] MEDS: PROPOFOL 100 ML IV SCH ×3 (09:00→18:50)
[2018-06-27] MEDS: POTASSIUM EFFERVESENT TAB 25 MEQ GT SCH (09:58)
[2018-06-27] MEDS: THIAMINE 100mg/ml INJ (200mg/2ml VIAL) IV SCH (09:58)
[2018-06-27] MEDS: PANTOPRAZOLE 40 MG/10 ML VIAL IV SCH (09:58)
[2018-06-27] MEDS: BUMETANIDE (0.25 MG/ML) INJ 10ML IV SCH (09:58)
[2018-06-27] MEDS: LORazepam 0.5 MG TAB PO SCH ×2 (09:59→22:57)
[2018-06-27] MEDS: ENOXAPARIN SOD 40 MG/0.4 ML SYRINGE SC SCH (09:59)
[2018-06-27] MEDS: LEVOFLOXACIN 750MG 150 ML IV SCH (10:00)
[2018-06-27] MEDS: SACUBITRIL-VALSARTAN 24mg/26mg TAB PO SCH ×2 (10:00→22:00)
[2018-06-27] MEDS: AMIODARONE HCL 200 MG TAB PO SCH (10:00)
[2018-06-27] MEDS: DIGOXIN 0.125 MG TAB PO SCH (10:00)
[2018-06-27] MEDS: METOPROLOL TARTRATE 25 MG TAB PO SCH ×2 (10:00→22:58)
[2018-06-27] MEDS: MIDAZOLAM DRIP 50 mg/50mL 50 ML IV SCH (14:35)
[2018-06-27] MEDS: fentaNYL Drip 2500mCg/250mlNS 250 ML IV SCH (18:49)
[2018-06-28] VITALS (103 sets, daily range): BP systolic 93–138; BP diastolic 31–95
[2018-06-28] MEDS: NOREPINEPHRINE 8 MG/250ML KIT 250 ML IV SCH (01:00)
[2018-06-28] MEDS: ACETYLCYSTEINE 20%(200MG/ML) SOL 4ML NEB SCH ×6 (02:10→22:01)
[2018-06-28] MEDS: ALBUTEROL SULF 2.5 MG/0.5ML(0.5%) NEB SOLN NEB SCH ×6 (02:10→22:01)
[2018-06-28] MEDS: IPRATROPIUM BROM 0.5 MG/2.5ML INH SOL NEB SCH ×6 (02:11→22:01)
[2018-06-28 04:58] LABS: Albumin 2.6 g/dL (3.4-5.0); Bilirubin, Total 1.1 mg/dL (0.2-1.0); Potassium 4.2 mmol/L (3.5-5.1)
[2018-06-28] MEDS: METOCLOPRAMIDE HCL 5MG/ml INJ 2ml VIAL IV SCH ×3 (06:00→22:00)
[2018-06-28] MEDS: InsuLIN REG 1unit/0.01ml Soln (100units/ml) SC SCH ×4 (06:00→17:49)
[2018-06-28] MEDS: methylPREDNISolone SOD SUCC 125 MG/2 ML VL IV SCH ×3 (06:00→22:00)
[2018-06-28] MEDS: SPIRONOLACTONE 25 MG TAB PO SCH ×2 (06:00→17:48)
[2018-06-28] MEDS: ACCU-CHEK COMFORT CURVE STRIP VI SCH ×4 (06:00→17:49)
[2018-06-28] MEDS: fentaNYL Drip 2500mCg/250mlNS 250 ML IV SCH (08:54)
[2018-06-28] MEDS: PROPOFOL 100 ML IV SCH ×2 (09:09→12:50)
[2018-06-28] MEDS: MIDAZOLAM DRIP 50 mg/50mL 50 ML IV SCH (09:09)
[2018-06-28] MEDS: DIGOXIN 0.125 MG TAB PO SCH (10:00)
[2018-06-28] MEDS: METOPROLOL TARTRATE 25 MG TAB PO SCH ×2 (10:00→22:00)
[2018-06-28] MEDS: POTASSIUM EFFERVESENT TAB 25 MEQ GT SCH (10:19)
[2018-06-28] MEDS: BUMETANIDE (0.25 MG/ML) INJ 10ML IV SCH (10:19)
[2018-06-28] MEDS: THIAMINE 100mg/ml INJ (200mg/2ml VIAL) IV SCH (10:19)
[2018-06-28] MEDS: LEVOFLOXACIN 750MG 150 ML IV SCH (10:20)
[2018-06-28] MEDS: LORazepam 0.5 MG TAB PO SCH ×2 (10:20→22:00)
[2018-06-28] MEDS: PANTOPRAZOLE 40 MG/10 ML VIAL IV SCH (10:20)
[2018-06-28] MEDS: AMIODARONE HCL 200 MG TAB PO SCH (10:21)
[2018-06-28] MEDS: ENOXAPARIN SOD 40 MG/0.4 ML SYRINGE SC SCH (10:22)
[2018-06-28] MEDS: SACUBITRIL-VALSARTAN 24mg/26mg TAB PO SCH ×2 (10:31→22:00)
[2018-06-29] VITALS (105 sets, daily range): BP systolic 82–126; BP diastolic 33–89
[2018-06-29] MEDS: NOREPINEPHRINE 8 MG/250ML KIT 250 ML IV SCH (01:00)
[2018-06-29] MEDS: ALBUTEROL SULF 2.5 MG/0.5ML(0.5%) NEB SOLN NEB SCH ×6 (01:54→22:07)
[2018-06-29] MEDS: ACETYLCYSTEINE 20%(200MG/ML) SOL 4ML NEB SCH ×6 (01:54→22:07)
[2018-06-29] MEDS: IPRATROPIUM BROM 0.5 MG/2.5ML INH SOL NEB SCH ×6 (01:54→22:07)
[2018-06-29 04:40] LABS: Basophils # (auto) 0 uL; Basophils % (auto) 0.1 % (0.0-2.0); Eosinophils # (auto) 0 uL; Hematocrit 50.2 % (41.0-53.0); Hemoglobin 16.1 g/dL (13.5-17.5); Lymphocytes # (auto) 0.3 uL; Lymphocytes % (auto) 2.8 % (10.0-50.0); Mean Corpuscular Hemoglobin 28.3 pg (28.0-32.0); Mean Corpuscular Volume 88.4 fL (80.0-100.0); Monocytes # (auto) 0.4 uL; Neutrophils # (auto) 10.3 uL; Neutrophils % (auto) 93.1 % (37.0-80.0); Platelet Count (auto) 221 10^3/uL (140-450); Red Blood Cells 5.68 10^6/uL (4.5-5.90); Red Cell Distribution Width 17.2 % (11.8-14.3)
[2018-06-29 04:59] LABS: Albumin 2.5 g/dL (3.4-5.0); BUN/Creatinine Ratio 44.1; Bilirubin, Total 1.1 mg/dL (0.2-1.0); Calcium 8.8 mg/dL (8.5-10.1); Potassium 4.1 mmol/L (3.5-5.1); Total Protein 5.8 g/dL (6.4-8.2)
[2018-06-29] MEDS: ACCU-CHEK COMFORT CURVE STRIP VI SCH ×5 (06:00→23:40)
[2018-06-29] MEDS: METOCLOPRAMIDE HCL 5MG/ml INJ 2ml VIAL IV SCH ×3 (06:00→21:56)
[2018-06-29] MEDS: methylPREDNISolone SOD SUCC 125 MG/2 ML VL IV SCH ×3 (06:00→21:57)
[2018-06-29] MEDS: SPIRONOLACTONE 25 MG TAB PO SCH ×2 (06:00→17:47)
[2018-06-29] MEDS: InsuLIN REG 1unit/0.01ml Soln (100units/ml) SC SCH ×5 (06:00→23:40)
[2018-06-29] MEDS: PROPOFOL 100 ML IV SCH ×2 (08:33→17:15)
[2018-06-29] MEDS: fentaNYL Drip 2500mCg/250mlNS 250 ML IV SCH ×2 (08:34→19:43)
[2018-06-29] MEDS: BUMETANIDE (0.25 MG/ML) INJ 10ML IV SCH (09:34)
[2018-06-29] MEDS: THIAMINE 100mg/ml INJ (200mg/2ml VIAL) IV SCH (09:34)
[2018-06-29] MEDS: ENOXAPARIN SOD 40 MG/0.4 ML SYRINGE SC SCH (09:35)
[2018-06-29] MEDS: POTASSIUM EFFERVESENT TAB 25 MEQ GT SCH (09:35)
[2018-06-29] MEDS: LEVOFLOXACIN 750MG 150 ML IV SCH (09:35)
[2018-06-29] MEDS: METOPROLOL TARTRATE 25 MG TAB PO SCH ×2 (09:35→22:00)
[2018-06-29] MEDS: SACUBITRIL-VALSARTAN 24mg/26mg TAB PO SCH ×2 (09:36→22:00)
[2018-06-29] MEDS: AMIODARONE HCL 200 MG TAB PO SCH (09:36)
[2018-06-29] MEDS: DIGOXIN 0.125 MG TAB PO SCH (09:36)
[2018-06-29] MEDS: LORazepam 0.5 MG TAB PO SCH ×2 (09:37→21:57)
[2018-06-29] MEDS: PANTOPRAZOLE 40 MG/10 ML VIAL IV SCH (09:37)
[2018-06-29] MEDS: Jevity 1.2 Cal/Fiber 1 Liter GT SCH (09:45)
[2018-06-29] MEDS: MIDAZOLAM DRIP 50 mg/50mL 50 ML IV SCH ×3 (11:53→22:13)
[2018-06-30] VITALS (96 sets, daily range): BP systolic 83–146; BP diastolic 34–86
[2018-06-30] MEDS: IPRATROPIUM BROM 0.5 MG/2.5ML INH SOL NEB SCH ×6 (01:54→22:15)
[2018-06-30] MEDS: ALBUTEROL SULF 2.5 MG/0.5ML(0.5%) NEB SOLN NEB SCH ×6 (01:54→22:15)
[2018-06-30] MEDS: ACETYLCYSTEINE 20%(200MG/ML) SOL 4ML NEB SCH ×6 (01:54→22:15)
[2018-06-30] MEDS: MIDAZOLAM DRIP 50 mg/50mL 50 ML IV SCH ×5 (02:00→20:40)
[2018-06-30] MEDS: PROPOFOL 100 ML IV SCH ×4 (04:09→23:02)
[2018-06-30 04:31] LABS: Hematocrit 50.8 % (41.0-53.0); Hemoglobin 16.2 g/dL (13.5-17.5); Mean Corpuscular Hemoglobin 28.2 pg (28.0-32.0); Mean Corpuscular Hgb Conc. 31.8 g/dL (32.0-36.0); Mean Corpuscular Volume 88.8 fL (80.0-100.0); Platelet Count (auto) 205 10^3/uL (140-450); Red Blood Cells 5.72 10^6/uL (4.5-5.90); Red Cell Distribution Width 17.7 % (11.8-14.3); White Blood Cell 11.6 10^3/uL (4.4-10.8)
[2018-06-30 04:36] LABS: Band Neutrophils % (manual) 0; Basophils % (manual) 0 (0.0-2.0); Blast Cells 0; Eosinophils % (manual) 0 (0-7); Metamyelocytes % 0; Myelocytes % 0; Promyelocytes % 0; Reactive Lymphocytes 0
[2018-06-30 04:43] LABS: Albumin 2.5 g/dL (3.4-5.0); BUN/Creatinine Ratio 62.7; Calcium 8.6 mg/dL (8.5-10.1)
[2018-06-30 04:44] LABS: Bilirubin, Total 1.2 mg/dL (0.2-1.0); Total Protein 5.7 g/dL (6.4-8.2)
[2018-06-30 05:25] LABS: Lymphocytes % (manual) 2 (10.0-50.0); Monocytes % (manual) 3 (0-12)
[2018-06-30] MEDS: METOCLOPRAMIDE HCL 5MG/ml INJ 2ml VIAL IV SCH ×3 (05:56→22:20)
[2018-06-30] MEDS: ACCU-CHEK COMFORT CURVE STRIP VI SCH ×3 (05:57→18:23)
[2018-06-30] MEDS: methylPREDNISolone SOD SUCC 125 MG/2 ML VL IV SCH ×3 (05:57→22:21)
[2018-06-30] MEDS: SPIRONOLACTONE 25 MG TAB PO SCH ×2 (05:57→18:00)
[2018-06-30] MEDS: InsuLIN REG 1unit/0.01ml Soln (100units/ml) SC SCH ×3 (06:18→18:00)
[2018-06-30] MEDS: NOREPINEPHRINE 8 MG/250ML KIT 250 ML IV SCH (07:39)
[2018-06-30] MEDS: fentaNYL Drip 2500mCg/250mlNS 250 ML IV SCH (07:41)
[2018-06-30] MEDS: LORazepam 0.5 MG TAB PO SCH ×2 (10:00→22:21)
[2018-06-30] MEDS: SACUBITRIL-VALSARTAN 24mg/26mg TAB PO SCH ×2 (10:00→22:00)
[2018-06-30] MEDS: DIGOXIN 0.125 MG TAB PO SCH (10:00)
[2018-06-30] MEDS: AMIODARONE HCL 200 MG TAB PO SCH (10:00)
[2018-06-30] MEDS: METOPROLOL TARTRATE 25 MG TAB PO SCH ×2 (10:50→22:00)
[2018-06-30] MEDS: BUMETANIDE (0.25 MG/ML) INJ 10ML IV SCH (11:10)
[2018-06-30] MEDS: LEVOFLOXACIN 750MG 150 ML IV SCH (11:11)
[2018-06-30] MEDS: ENOXAPARIN SOD 40 MG/0.4 ML SYRINGE SC SCH (11:11)
[2018-06-30] MEDS: POTASSIUM EFFERVESENT TAB 25 MEQ GT SCH (11:11)
[2018-06-30] MEDS: THIAMINE 100mg/ml INJ (200mg/2ml VIAL) IV SCH (11:11)
[2018-06-30] MEDS: PANTOPRAZOLE 40 MG/10 ML VIAL IV SCH (11:11)
[2018-06-30] MEDS: Jevity 1.2 Cal/Fiber 1 Liter GT SCH (20:35)
[2018-07-01] VITALS (103 sets, daily range): BP systolic 83–132; BP diastolic 34–83
[2018-07-01] MEDS: MIDAZOLAM DRIP 50 mg/50mL 50 ML IV SCH ×5 (00:31→19:44)
[2018-07-01] MEDS: DIGOXIN 0.125 MG TAB PO SCH (00:39)
[2018-07-01] MEDS: AMIODARONE HCL 200 MG TAB PO SCH (01:56)
[2018-07-01] MEDS: ALBUTEROL SULF 2.5 MG/0.5ML(0.5%) NEB SOLN NEB SCH ×6 (02:17→21:58)
[2018-07-01] MEDS: IPRATROPIUM BROM 0.5 MG/2.5ML INH SOL NEB SCH ×6 (02:17→21:57)
[2018-07-01] MEDS: ACETYLCYSTEINE 20%(200MG/ML) SOL 4ML NEB SCH ×6 (02:17→21:58)
[2018-07-01] MEDS ORDERED: DIGOXIN (250MCG/ML) 2 ML AMPULE IV ONE (03:00)
[2018-07-01] MEDS ORDERED: DIGOXIN (250MCG/ML) 2 ML AMPULE ONE (03:02)
[2018-07-01 04:15] LABS: Hematocrit 50.7 % (41.0-53.0); Hemoglobin 16.1 g/dL (13.5-17.5); Mean Corpuscular Hemoglobin 28.6 pg (28.0-32.0); Mean Corpuscular Hgb Conc. 31.7 g/dL (32.0-36.0); Mean Corpuscular Volume 90.1 fL (80.0-100.0); Platelet Count (auto) 216 10^3/uL (140-450); Red Blood Cells 5.63 10^6/uL (4.5-5.90); Red Cell Distribution Width 17.1 % (11.8-14.3); White Blood Cell 12.3 10^3/uL (4.4-10.8)
[2018-07-01 04:19] LABS: Band Neutrophils % (manual) 0; Basophils % (manual) 0 (0.0-2.0); Blast Cells 0; Eosinophils % (manual) 0 (0-7); Metamyelocytes % 0; Myelocytes % 0; Promyelocytes % 0; Reactive Lymphocytes 0
[2018-07-01 04:28] LABS: Albumin 2.4 g/dL (3.4-5.0); Calcium 8.3 mg/dL (8.5-10.1); Potassium 4.5 mmol/L (3.5-5.1)
[2018-07-01 04:33] LABS: Total Protein 5.5 g/dL (6.4-8.2)
[2018-07-01 04:42] LABS: Lymphocytes % (manual) 3 (10.0-50.0); Monocytes % (manual) 3 (0-12)
[2018-07-01] MEDS: fentaNYL Drip 2500mCg/250mlNS 250 ML IV SCH ×2 (05:11→18:06)
[2018-07-01] MEDS: PROPOFOL 100 ML IV SCH ×2 (05:12→19:30)
[2018-07-01] MEDS: InsuLIN REG 1unit/0.01ml Soln (100units/ml) SC SCH ×4 (06:00→18:07)
[2018-07-01] MEDS: SPIRONOLACTONE 25 MG TAB PO SCH ×2 (06:00→18:07)
[2018-07-01] MEDS: METOCLOPRAMIDE HCL 5MG/ml INJ 2ml VIAL IV SCH ×3 (06:26→22:21)
[2018-07-01] MEDS: methylPREDNISolone SOD SUCC 125 MG/2 ML VL IV SCH ×3 (06:26→22:21)
[2018-07-01] MEDS: ACCU-CHEK COMFORT CURVE STRIP VI SCH ×4 (06:27→18:07)
[2018-07-01] MEDS ORDERED: LIDOCAINE 2% (LOCAL ANESTH.) PF 5ml SDV ONE (08:18)
[2018-07-01] MEDS ORDERED: BENZOCAINE (DENTAL) 20 % SPRAY 60ML MT ONE (08:20)
[2018-07-01] MEDS ORDERED: HYDROmorphone HCL 2 MG/ML VL ONE (08:20)
[2018-07-01] MEDS ORDERED: SODIUM CHLORIDE LOCK 30 ML ONE (08:20)
[2018-07-01] MEDS ORDERED: EPINEPHrine HCL 1 MG/1 ML AMP ONE (08:21)
[2018-07-01] MEDS ORDERED: MIDAZOLAM HCL 5 MG/ML-1ML VIAL ONE (08:21)
[2018-07-01] MEDS ORDERED: LIDOCAINE 2% JELLY 11ml (GLYDO) ONE ×2 (08:47→10:00)
[2018-07-01] MEDS ORDERED: GLYCOPYRROLATE 0.2 MG/ML 1ML VIAL ONE (09:34)
[2018-07-01] MEDS: SACUBITRIL-VALSARTAN 24mg/26mg TAB PO SCH ×2 (10:00→22:00)
[2018-07-01] MEDS: LORazepam 0.5 MG TAB PO SCH ×2 (10:01→22:21)
[2018-07-01] MEDS: ENOXAPARIN SOD 40 MG/0.4 ML SYRINGE SC SCH (10:01)
[2018-07-01] MEDS: POTASSIUM EFFERVESENT TAB 25 MEQ GT SCH (10:01)
[2018-07-01] MEDS: PANTOPRAZOLE 40 MG/10 ML VIAL IV SCH (10:02)
[2018-07-01] MEDS: BUMETANIDE (0.25 MG/ML) INJ 10ML IV SCH (10:02)
[2018-07-01] MEDS: THIAMINE 100mg/ml INJ (200mg/2ml VIAL) IV SCH (10:02)
[2018-07-01] MEDS: LEVOFLOXACIN 750MG 150 ML IV SCH (10:03)
[2018-07-01 11:41] LABS: Prothrombin Time 10.7 sec (9.27-12.13)
[2018-07-01] MEDS ORDERED: LIDOCAINE 1% (LOCAL ANESTH.) PF 5ml SDV ID ONE (14:15)
[2018-07-01] MEDS ORDERED: MIDAZOLAM DRIP 50 mg/50mL 50 ML IV ONE (18:14)
[2018-07-01] MEDS ORDERED: MIDAZOLAM DRIP 50 mg/50mL 50 ML IV SCH (18:16)
[2018-07-01] MEDS: CARVEDILOL 3.125 MG TAB PO SCH (19:51)
[2018-07-01] MEDS: Jevity 1.2 Cal/Fiber 1 Liter GT SCH (20:15)
[2018-07-01] MEDS: SODIUM CHLOR 0.9% PF (SALINE LOCK) 10ML VIAL/SYR IV SCH (22:22)
[2018-07-02] VITALS (91 sets, daily range): BP systolic 91–153; BP diastolic 44–83
[2018-07-02] MEDS: ACCU-CHEK COMFORT CURVE STRIP VI SCH ×5 (00:15→23:51)
[2018-07-02] MEDS: InsuLIN REG 1unit/0.01ml Soln (100units/ml) SC SCH ×5 (00:15→23:51)
[2018-07-02] MEDS: IPRATROPIUM BROM 0.5 MG/2.5ML INH SOL NEB SCH ×6 (02:21→22:43)
[2018-07-02] MEDS: ALBUTEROL SULF 2.5 MG/0.5ML(0.5%) NEB SOLN NEB SCH ×7 (02:21→22:43)
[2018-07-02] MEDS: ACETYLCYSTEINE 20%(200MG/ML) SOL 4ML NEB SCH ×6 (02:21→22:43)
[2018-07-02] MEDS: PROPOFOL 100 ML IV SCH ×2 (02:54→09:58)
[2018-07-02 04:41] LABS: Hematocrit 50.4 % (41.0-53.0); Hemoglobin 16.2 g/dL (13.5-17.5); Mean Corpuscular Hgb Conc. 32.1 g/dL (32.0-36.0); Mean Corpuscular Volume 90.1 fL (80.0-100.0); Platelet Count (auto) 157 10^3/uL (140-450); Red Cell Distribution Width 17.5 % (11.8-14.3); White Blood Cell 10.9 10^3/uL (4.4-10.8)
[2018-07-02 04:45] LABS: Band Neutrophils % (manual) 0; Basophils % (manual) 0 (0.0-2.0); Blast Cells 0; Eosinophils % (manual) 0 (0-7); Metamyelocytes % 0; Myelocytes % 0; Promyelocytes % 0; Reactive Lymphocytes 0
[2018-07-02 04:52] LABS: Albumin 2.3 g/dL (3.4-5.0); Calcium 8.2 mg/dL (8.5-10.1); Potassium 4.6 mmol/L (3.5-5.1)
[2018-07-02 04:59] LABS: BUN/Creatinine Ratio 69.6; Bilirubin, Total 1.3 mg/dL (0.2-1.0); Total Protein 5.4 g/dL (6.4-8.2)
[2018-07-02 05:10] LABS: Lymphocytes % (manual) 3 (10.0-50.0); Monocytes % (manual) 4 (0-12)
[2018-07-02] MEDS: MIDAZOLAM DRIP 50 mg/50mL 50 ML IV SCH ×3 (05:39→21:26)
[2018-07-02] MEDS: SPIRONOLACTONE 25 MG TAB PO SCH ×2 (06:00→18:00)
[2018-07-02] MEDS: methylPREDNISolone SOD SUCC 125 MG/2 ML VL IV SCH ×3 (06:03→21:31)
[2018-07-02] MEDS: METOCLOPRAMIDE HCL 5MG/ml INJ 2ml VIAL IV SCH ×3 (06:03→21:31)
[2018-07-02] MEDS: fentaNYL Drip 2500mCg/250mlNS 250 ML IV SCH ×2 (06:23→22:24)
[2018-07-02] MEDS: LEVOFLOXACIN 750MG 150 ML IV SCH (09:51)
[2018-07-02] MEDS: PANTOPRAZOLE 40 MG/10 ML VIAL IV SCH (09:51)
[2018-07-02] MEDS: POTASSIUM EFFERVESENT TAB 25 MEQ GT SCH ×2 (09:51→10:00)
[2018-07-02] MEDS: ENOXAPARIN SOD 40 MG/0.4 ML SYRINGE SC SCH (09:51)
[2018-07-02] MEDS: THIAMINE 100mg/ml INJ (200mg/2ml VIAL) IV SCH (09:52)
[2018-07-02] MEDS: LORazepam 0.5 MG TAB PO SCH (09:57)
[2018-07-02] MEDS: CARVEDILOL 3.125 MG TAB PO SCH (09:57)
[2018-07-02] MEDS ORDERED: BUMETANIDE 1 MG TAB PO SCH (10:00)
[2018-07-02] MEDS: SACUBITRIL-VALSARTAN 24mg/26mg TAB PO SCH ×2 (10:30→21:31)
[2018-07-02] MEDS: SODIUM CHLOR 0.9% PF (SALINE LOCK) 10ML VIAL/SYR IV SCH ×2 (10:32→21:31)
[2018-07-02] MEDS ORDERED: AMIODARONE HCL 150 MG in D5W 5% 100 ML IV ONE (11:30)
[2018-07-02] MEDS: METOPROLOL TARTRATE 1MG/1ML-5ML VIAL IV SCH ×2 (16:09→23:51)
[2018-07-02] MEDS ORDERED: LORazepam 2MG/ML-1ML VIAL IV PRN (18:15)
[2018-07-02] MEDS ORDERED: AMIODARONE HCL 900 MG in DEXTROSE 500 ML IV SCH (19:30)
[2018-07-02] MEDS: NOREPINEPHRINE 8 MG/250ML KIT 250 ML IV SCH ×2 (19:37→20:08)
[2018-07-02] MEDS ORDERED: CARVEDILOL 3.125 MG TAB PO SCH (22:00)
[2018-07-02] MEDS ORDERED: LORazepam 0.5 MG TAB PO SCH (22:00)
[2018-07-03] VITALS (108 sets, daily range): BP systolic 86–141; BP diastolic 39–102
[2018-07-03] MEDS: NOREPINEPHRINE 8 MG/250ML KIT 250 ML IV SCH (01:00)
[2018-07-03] MEDS: AMIODARONE HCL 900 MG in DEXTROSE 500 ML IV SCH ×2 (01:30→22:21)
[2018-07-03] MEDS: ALBUTEROL SULF 2.5 MG/0.5ML(0.5%) NEB SOLN NEB SCH ×5 (02:00→22:23)
[2018-07-03] MEDS: IPRATROPIUM BROM 0.5 MG/2.5ML INH SOL NEB SCH ×6 (02:00→22:23)
[2018-07-03] MEDS: ACETYLCYSTEINE 20%(200MG/ML) SOL 4ML NEB SCH ×6 (02:00→22:23)
[2018-07-03] MEDS: fentaNYL Drip 2500mCg/250mlNS 250 ML IV SCH (02:58)
[2018-07-03 04:18] LABS: Hematocrit 50.3 % (41.0-53.0); Hemoglobin 16.2 g/dL (13.5-17.5); Mean Corpuscular Hemoglobin 28.9 pg (28.0-32.0); Mean Corpuscular Hgb Conc. 32.3 g/dL (32.0-36.0); Mean Corpuscular Volume 89.3 fL (80.0-100.0); Platelet Count (auto) 154 10^3/uL (140-450); Red Blood Cells 5.63 10^6/uL (4.5-5.90); Red Cell Distribution Width 17.4 % (11.8-14.3); White Blood Cell 12.2 10^3/uL (4.4-10.8)
[2018-07-03 04:25] LABS: Band Neutrophils % (manual) 0; Basophils % (manual) 0 (0.0-2.0); Blast Cells 0; Eosinophils % (manual) 0 (0-7); Metamyelocytes % 0; Myelocytes % 0; Promyelocytes % 0; Reactive Lymphocytes 0
[2018-07-03 04:47] LABS: Albumin 2.4 g/dL (3.4-5.0); BUN/Creatinine Ratio 73.3; Bilirubin, Total 1.5 mg/dL (0.2-1.0); Calcium 8.6 mg/dL (8.5-10.1); Potassium 4.1 mmol/L (3.5-5.1); Total Protein 5.4 g/dL (6.4-8.2)
[2018-07-03 04:53] LABS: Lymphocytes % (manual) 3 (10.0-50.0); Monocytes % (manual) 5 (0-12)
[2018-07-03] MEDS: DEXMEDETOMIDINE HCL 400 MCG in D5W 5% 96 ML IV SCH (05:00)
[2018-07-03] MEDS: SPIRONOLACTONE 25 MG TAB PO SCH ×2 (05:42→17:43)
[2018-07-03] MEDS: InsuLIN REG 1unit/0.01ml Soln (100units/ml) SC SCH ×4 (05:42→23:50)
[2018-07-03] MEDS: METOPROLOL TARTRATE 1MG/1ML-5ML VIAL IV SCH ×3 (05:43→23:50)
[2018-07-03] MEDS: ACCU-CHEK COMFORT CURVE STRIP VI SCH ×4 (05:43→23:50)
[2018-07-03] MEDS: METOCLOPRAMIDE HCL 5MG/ml INJ 2ml VIAL IV SCH ×3 (06:10→22:19)
[2018-07-03] MEDS: methylPREDNISolone SOD SUCC 125 MG/2 ML VL IV SCH ×3 (06:10→22:20)
[2018-07-03 09:19] LABS: Hepatitis B Surface Antibody Positive
[2018-07-03] MEDS: LEVOFLOXACIN 750MG 150 ML IV SCH (09:33)
[2018-07-03] MEDS: THIAMINE 100mg/ml INJ (200mg/2ml VIAL) IV SCH (09:33)
[2018-07-03] MEDS: ENOXAPARIN SOD 40 MG/0.4 ML SYRINGE SC SCH (09:33)
[2018-07-03] MEDS: SACUBITRIL-VALSARTAN 24mg/26mg TAB PO SCH ×2 (09:34→22:00)
[2018-07-03] MEDS: POTASSIUM EFFERVESENT TAB 25 MEQ GT SCH (09:34)
[2018-07-03] MEDS: SODIUM CHLOR 0.9% PF (SALINE LOCK) 10ML VIAL/SYR IV SCH ×2 (09:34→22:19)
[2018-07-03 09:55] LABS: Hepatitis A Total Antibody Positive
[2018-07-03 10:25] LABS: Hepatitis B Core Total AB Negative
[2018-07-03 10:26] LABS: Hepatitis B Surface Antigen Negative (Negative); Hepatitis C Antibody Negative (Negative)
[2018-07-03] MEDS: DIGOXIN (250MCG/ML) 2 ML AMPULE IV SCH (10:28)
[2018-07-03] MEDS: PANTOPRAZOLE 40 MG/10 ML VIAL IV SCH (10:28)
[2018-07-03] MEDS: BUMETANIDE (0.25MG/ML) 4 ML VIAL IV SCH (10:47)
[2018-07-03] MEDS: LORazepam 2MG/ML-1ML VIAL IV SCH ×3 (11:34→23:40)
[2018-07-03] MEDS: PROPOFOL 100 ML IV SCH ×2 (16:55→23:25)
[2018-07-03] MEDS ORDERED: METOPROLOL TARTRATE 1MG/1ML-5ML VIAL IV SCH (18:00)
[2018-07-03] MEDS: MIDAZOLAM DRIP 50 mg/50mL 50 ML IV SCH (22:22)
[2018-07-04] VITALS (94 sets, daily range): BP systolic 93–149; BP diastolic 39–109
[2018-07-04] MEDS: DEXMEDETOMIDINE HCL 400 MCG in D5W 5% 96 ML IV SCH ×2 (00:28→19:56)
[2018-07-04] MEDS: NOREPINEPHRINE 8 MG/250ML KIT 250 ML IV SCH (00:49)
[2018-07-04] MEDS: MIDAZOLAM DRIP 50 mg/50mL 50 ML IV SCH ×2 (02:16→08:59)
[2018-07-04] MEDS: ALBUTEROL SULF 2.5 MG/0.5ML(0.5%) NEB SOLN NEB SCH ×6 (02:40→22:26)
[2018-07-04] MEDS: IPRATROPIUM BROM 0.5 MG/2.5ML INH SOL NEB SCH ×6 (02:40→22:27)
[2018-07-04] MEDS: ACETYLCYSTEINE 20%(200MG/ML) SOL 4ML NEB SCH ×6 (02:40→22:25)
[2018-07-04 04:24] LABS: Basophils # (auto) 0.1 uL; Basophils % (auto) 0.5 % (0.0-2.0); Eosinophils # (auto) 0 uL; Hematocrit 50.2 % (41.0-53.0); Hemoglobin 16.5 g/dL (13.5-17.5); Lymphocytes # (auto) 0.3 uL; Lymphocytes % (auto) 3.2 % (10.0-50.0); Mean Corpuscular Hemoglobin 29.2 pg (28.0-32.0); Mean Corpuscular Hgb Conc. 32.9 g/dL (32.0-36.0); Mean Corpuscular Volume 88.9 fL (80.0-100.0); Monocytes # (auto) 0.5 uL; Monocytes % (auto) 4.5 % (0.0-12.0); Neutrophils # (auto) 10.1 uL; Neutrophils % (auto) 91.8 % (37.0-80.0); Platelet Count (auto) 118 10^3/uL (140-450); Red Blood Cells 5.65 10^6/uL (4.5-5.90); Red Cell Distribution Width 16.7 % (11.8-14.3)
[2018-07-04 04:28] LABS: BUN/Creatinine Ratio 66.1; Magnesium 2.2 mg/dL (1.6-2.6); Phosphorus 3.2 mg/dL (2.5-4.90)
[2018-07-04] MEDS: LORazepam 2MG/ML-1ML VIAL IV SCH ×2 (05:34→12:39)
[2018-07-04] MEDS: METOCLOPRAMIDE HCL 5MG/ml INJ 2ml VIAL IV SCH ×3 (05:35→22:31)
[2018-07-04] MEDS: METOPROLOL TARTRATE 1MG/1ML-5ML VIAL IV SCH ×4 (05:35→23:41)
[2018-07-04] MEDS: methylPREDNISolone SOD SUCC 125 MG/2 ML VL IV SCH ×2 (05:35→15:31)
[2018-07-04] MEDS: SPIRONOLACTONE 25 MG TAB PO SCH ×2 (05:36→18:28)
[2018-07-04] MEDS: InsuLIN REG 1unit/0.01ml Soln (100units/ml) SC SCH ×4 (06:00→23:38)
[2018-07-04] MEDS: ACCU-CHEK COMFORT CURVE STRIP VI SCH ×4 (06:00→23:38)
[2018-07-04] MEDS: PROPOFOL 100 ML IV SCH ×3 (06:39→21:04)
[2018-07-04] MEDS: fentaNYL Drip 2500mCg/250mlNS 250 ML IV SCH (08:59)
[2018-07-04] MEDS: BUMETANIDE (0.25MG/ML) 4 ML VIAL IV SCH (10:24)
[2018-07-04] MEDS: ENOXAPARIN SOD 40 MG/0.4 ML SYRINGE SC SCH (10:25)
[2018-07-04] MEDS: THIAMINE 100mg/ml INJ (200mg/2ml VIAL) IV SCH (10:25)
[2018-07-04] MEDS: POTASSIUM EFFERVESENT TAB 25 MEQ GT SCH (10:25)
[2018-07-04] MEDS: PANTOPRAZOLE 40 MG/10 ML VIAL IV SCH (10:25)
[2018-07-04] MEDS: LEVOFLOXACIN 750MG 150 ML IV SCH (10:25)
[2018-07-04] MEDS: SODIUM CHLOR 0.9% PF (SALINE LOCK) 10ML VIAL/SYR IV SCH ×2 (10:25→22:00)
[2018-07-04] MEDS: DIGOXIN (250MCG/ML) 2 ML AMPULE IV SCH (10:26)
[2018-07-04] MEDS: SACUBITRIL-VALSARTAN 24mg/26mg TAB PO SCH ×2 (10:49→22:00)
[2018-07-04] MEDS ORDERED: LORazepam 2MG/ML-1ML VIAL IV PRN (17:30)
[2018-07-04] MEDS: Pro-Stat SF 30ml Vanilla GT SCH (18:00)
[2018-07-04] MEDS ORDERED: methylPREDNISolone SOD SUCC 125 MG/2 ML VL IV SCH (19:45)
[2018-07-04] MEDS ORDERED: diphenhdrAMINE HCL 50 MG/1 ML VL IV SCH (19:45)
[2018-07-04] MEDS: chlordiazePOXIDE HCL 25 MG CAP PO SCH (20:14)
[2018-07-04] MEDS ORDERED: IOHEXOL 350 MG/ML 100ML IJ ONE (20:46)
[2018-07-04] MEDS: traZODone HCL 50 MG TAB PO SCH (22:47)
[2018-07-04] MEDS: Jevity 1.2 Cal/Fiber 1 Liter GT SCH (23:02)
[2018-07-04 23:44] LABS: Basophils # (auto) 0.1 uL; Basophils % (auto) 0.5 % (0.0-2.0); Eosinophils # (auto) 0 uL; Hematocrit 47.6 % (41.0-53.0); Hemoglobin 15.3 g/dL (13.5-17.5); Lymphocytes # (auto) 0.2 uL; Lymphocytes % (auto) 1.6 % (10.0-50.0); Mean Corpuscular Hemoglobin 28.5 pg (28.0-32.0); Mean Corpuscular Hgb Conc. 32.1 g/dL (32.0-36.0); Mean Corpuscular Volume 88.6 fL (80.0-100.0); Monocytes # (auto) 0.5 uL; Monocytes % (auto) 4.5 % (0.0-12.0); Neutrophils # (auto) 10.7 uL; Neutrophils % (auto) 93.4 % (37.0-80.0); Platelet Count (auto) 117 10^3/uL (140-450); Red Blood Cells 5.38 10^6/uL (4.5-5.90); White Blood Cell 11.5 10^3/uL (4.4-10.8)
[2018-07-04 23:58] LABS: INR 1.05 (0.9-1.15); Prothrombin Time 11.2 sec (9.27-12.13)
[2018-07-05] VITALS (106 sets, daily range): BP systolic 72–127; BP diastolic 19–95
[2018-07-05] MEDS ORDERED: HEPARIN SODIUM (PORCINE) 5000 UNITS/ML 1ML VIAL ONE (00:34)
[2018-07-05] MEDS: HEPARIN DRIP/D5W 100UNITS/ML 250 ML IV SCH (00:47)
[2018-07-05] MEDS: NOREPINEPHRINE 8 MG/250ML KIT 250 ML IV SCH ×2 (01:00→23:03)
[2018-07-05] MEDS: AMIODARONE HCL 900 MG in DEXTROSE 500 ML IV SCH ×2 (01:30→05:35)
[2018-07-05] MEDS: IPRATROPIUM BROM 0.5 MG/2.5ML INH SOL NEB SCH ×6 (02:22→22:32)
[2018-07-05] MEDS: ACETYLCYSTEINE 20%(200MG/ML) SOL 4ML NEB SCH ×6 (02:22→22:32)
[2018-07-05] MEDS: ALBUTEROL SULF 2.5 MG/0.5ML(0.5%) NEB SOLN NEB SCH ×6 (02:22→22:32)
[2018-07-05] MEDS: MIDAZOLAM DRIP 50 mg/50mL 50 ML IV SCH (03:00)
[2018-07-05 04:19] LABS: Basophils # (auto) 0.1 uL; Basophils % (auto) 0.5 % (0.0-2.0); Eosinophils # (auto) 0 uL; Hematocrit 48.9 % (41.0-53.0); Hemoglobin 15.7 g/dL (13.5-17.5); Lymphocytes # (auto) 0.2 uL; Lymphocytes % (auto) 1.7 % (10.0-50.0); Mean Corpuscular Hemoglobin 28.3 pg (28.0-32.0); Mean Corpuscular Hgb Conc. 32.1 g/dL (32.0-36.0); Mean Corpuscular Volume 88.2 fL (80.0-100.0); Monocytes # (auto) 0.5 uL; Monocytes % (auto) 4.5 % (0.0-12.0); Neutrophils # (auto) 10.7 uL; Neutrophils % (auto) 93.3 % (37.0-80.0); Nucleated Red Blood Cells % 0.1 %; Platelet Count (auto) 101 10^3/uL (140-450); Red Blood Cells 5.55 10^6/uL (4.5-5.90); Red Cell Distribution Width 16.9 % (11.8-14.3); White Blood Cell 11.5 10^3/uL (4.4-10.8)
[2018-07-05 04:38] LABS: Albumin 2.4 g/dL (3.4-5.0); BUN/Creatinine Ratio 63.6; Bilirubin, Total 2.3 mg/dL (0.2-1.0); Calcium 8.9 mg/dL (8.5-10.1); Total Protein 5.5 g/dL (6.4-8.2)
[2018-07-05] MEDS: SPIRONOLACTONE 25 MG TAB PO SCH ×2 (05:36→18:01)
[2018-07-05] MEDS: chlordiazePOXIDE HCL 25 MG CAP PO SCH ×3 (05:36→21:43)
[2018-07-05] MEDS: METOCLOPRAMIDE HCL 5MG/ml INJ 2ml VIAL IV SCH ×3 (05:36→21:43)
[2018-07-05] MEDS: PROPOFOL 100 ML IV SCH ×2 (05:41→15:03)
[2018-07-05] MEDS: METOPROLOL TARTRATE 1MG/1ML-5ML VIAL IV SCH ×3 (05:43→18:00)
[2018-07-05] MEDS: ACCU-CHEK COMFORT CURVE STRIP VI SCH ×3 (06:13→18:00)
[2018-07-05] MEDS: InsuLIN REG 1unit/0.01ml Soln (100units/ml) SC SCH ×3 (06:13→18:02)
[2018-07-05 07:12] LABS: INR 1.04 (0.9-1.15); Prothrombin Time 11.1 sec (9.27-12.13)
[2018-07-05 07:20] LABS: Partial Thromboplastin Time 85.8 sec (23.78-33.04)
[2018-07-05] MEDS: Pro-Stat SF 30ml Vanilla GT SCH ×2 (08:00→18:00)
[2018-07-05] MEDS: PANTOPRAZOLE 40 MG/10 ML VIAL IV SCH (09:49)
[2018-07-05] MEDS: THIAMINE 100mg/ml INJ (200mg/2ml VIAL) IV SCH (09:59)
[2018-07-05] MEDS: SODIUM CHLOR 0.9% PF (SALINE LOCK) 10ML VIAL/SYR IV SCH ×2 (10:00→22:00)
[2018-07-05] MEDS: BUMETANIDE (0.25MG/ML) 4 ML VIAL IV SCH (10:07)
[2018-07-05] MEDS: POTASSIUM EFFERVESENT TAB 25 MEQ GT SCH (10:16)
[2018-07-05] MEDS: DIGOXIN (250MCG/ML) 2 ML AMPULE IV SCH (10:19)
[2018-07-05] MEDS: SACUBITRIL-VALSARTAN 24mg/26mg TAB PO SCH ×2 (10:28→22:00)
[2018-07-05] MEDS: LEVOFLOXACIN 750MG 150 ML IV SCH (10:40)
[2018-07-05 13:43] LABS: INR 1.01 (0.9-1.15); Prothrombin Time 10.8 sec (9.27-12.13)
[2018-07-05] MEDS: DEXMEDETOMIDINE HCL 400 MCG in D5W 5% 96 ML IV SCH (15:24)
[2018-07-05] MEDS: traZODone HCL 50 MG TAB PO SCH (21:43)
[2018-07-05] MEDS: fentaNYL Drip 2500mCg/250mlNS 250 ML IV SCH (22:24)
[2018-07-06] VITALS (107 sets, daily range): BP systolic 70–145; BP diastolic 29–93
[2018-07-06] MEDS: ACCU-CHEK COMFORT CURVE STRIP VI SCH ×3 (00:17→12:00)
[2018-07-06] MEDS ORDERED: HEPARIN SODIUM (PORCINE) 5000 UNITS/ML 1ML VIAL IV ONE (00:30)
[2018-07-06] MEDS: MIDAZOLAM DRIP 50 mg/50mL 50 ML IV SCH ×3 (01:46→19:06)
[2018-07-06] MEDS: PROPOFOL 100 ML IV SCH ×4 (01:46→23:17)
[2018-07-06] MEDS: ACETYLCYSTEINE 20%(200MG/ML) SOL 4ML NEB SCH ×6 (02:45→22:23)
[2018-07-06] MEDS: ALBUTEROL SULF 2.5 MG/0.5ML(0.5%) NEB SOLN NEB SCH ×6 (02:45→22:23)
[2018-07-06] MEDS: IPRATROPIUM BROM 0.5 MG/2.5ML INH SOL NEB SCH ×6 (02:45→22:23)
[2018-07-06] MEDS: HEPARIN DRIP/D5W 100UNITS/ML 250 ML IV SCH ×2 (02:55→19:55)
[2018-07-06 03:00] LABS: Basophils # (auto) 0 uL; Basophils % (auto) 0.2 % (0.0-2.0); Eosinophils # (auto) 0.3 uL; Eosinophils % (auto) 2.3 % (0.0-7.0); Lymphocytes # (auto) 1.2 uL; Lymphocytes % (auto) 10.1 % (10.0-50.0); Mean Corpuscular Hgb Conc. 31.8 g/dL (32.0-36.0); Mean Corpuscular Volume 87.9 fL (80.0-100.0); Monocytes # (auto) 0.9 uL; Monocytes % (auto) 7.6 % (0.0-12.0); Neutrophils # (auto) 9.6 uL; Neutrophils % (auto) 79.8 % (37.0-80.0); Platelet Count (auto) 134 10^3/uL (140-450); Red Blood Cells 5.35 10^6/uL (4.5-5.90); Red Cell Distribution Width 16.9 % (11.8-14.3)
[2018-07-06 03:15] LABS: INR 1.01 (0.9-1.15); Partial Thromboplastin Time 67.8 sec (23.78-33.04); Prothrombin Time 10.8 sec (9.27-12.13)
[2018-07-06 03:20] LABS: Potassium 3.9 mmol/L (3.5-5.1)
[2018-07-06 03:21] LABS: Albumin 2.2 g/dL (3.4-5.0); BUN/Creatinine Ratio 61.5; Bilirubin, Total 1.7 mg/dL (0.2-1.0); Calcium 8.4 mg/dL (8.5-10.1); Total Protein 5.1 g/dL (6.4-8.2)
[2018-07-06] MEDS: InsuLIN REG 1unit/0.01ml Soln (100units/ml) SC SCH ×3 (06:00→12:00)
[2018-07-06] MEDS: METOPROLOL TARTRATE 1MG/1ML-5ML VIAL IV SCH ×4 (06:00→17:17)
[2018-07-06] MEDS: METOCLOPRAMIDE HCL 5MG/ml INJ 2ml VIAL IV SCH ×3 (06:46→21:54)
[2018-07-06] MEDS: chlordiazePOXIDE HCL 25 MG CAP PO SCH ×3 (06:47→21:54)
[2018-07-06] MEDS: SPIRONOLACTONE 25 MG TAB PO SCH (06:49)
[2018-07-06] MEDS: Pro-Stat SF 30ml Vanilla GT SCH ×2 (08:00→18:00)
[2018-07-06] MEDS: fentaNYL Drip 2500mCg/250mlNS 250 ML IV SCH (09:36)
[2018-07-06] MEDS: AMIODARONE HCL 900 MG in DEXTROSE 500 ML IV SCH (09:40)
[2018-07-06] MEDS: PANTOPRAZOLE 40 MG/10 ML VIAL IV SCH (09:47)
[2018-07-06] MEDS: THIAMINE 100mg/ml INJ (200mg/2ml VIAL) IV SCH (09:48)
[2018-07-06] MEDS: SODIUM CHLOR 0.9% PF (SALINE LOCK) 10ML VIAL/SYR IV SCH ×2 (09:48→22:00)
[2018-07-06] MEDS: POTASSIUM EFFERVESENT TAB 25 MEQ GT SCH (09:49)
[2018-07-06] MEDS: BUMETANIDE (0.25MG/ML) 4 ML VIAL IV SCH (09:50)
[2018-07-06] MEDS: DIGOXIN (250MCG/ML) 2 ML AMPULE IV SCH (09:51)
[2018-07-06] MEDS: LEVOFLOXACIN 750MG 150 ML IV SCH (09:54)
[2018-07-06] MEDS: SACUBITRIL-VALSARTAN 24mg/26mg TAB PO SCH ×2 (09:58→22:00)
[2018-07-06] MEDS: DEXMEDETOMIDINE HCL 400 MCG in D5W 5% 96 ML IV SCH (10:52)
[2018-07-06] MEDS ORDERED: SODIUM CHLORIDE 0.9% 250 ML IV ONE (17:00)
[2018-07-06] MEDS ORDERED: VANCOMYCIN PER PHARMACY 0 MG IV SCH (17:00)
[2018-07-06] MEDS: traZODone HCL 50 MG TAB PO SCH (21:54)
[2018-07-07] VITALS (92 sets, daily range): BP systolic 87–146; BP diastolic 38–96
[2018-07-07] MEDS: METOPROLOL TARTRATE 1MG/1ML-5ML VIAL IV SCH ×5 (00:13→19:20)
[2018-07-07] MEDS: fentaNYL Drip 2500mCg/250mlNS 250 ML IV SCH ×2 (00:14→19:26)
[2018-07-07] MEDS: ACCU-CHEK COMFORT CURVE STRIP VI SCH ×5 (00:20→17:40)
[2018-07-07] MEDS: InsuLIN REG 1unit/0.01ml Soln (100units/ml) SC SCH ×5 (00:21→17:41)
[2018-07-07] MEDS: NOREPINEPHRINE 8 MG/250ML KIT 250 ML IV SCH (02:18)
[2018-07-07] MEDS: VANCOMYCIN 1,250 MG in D5W 5% 250 ML IV SCH ×2 (02:20→02:57)
[2018-07-07] MEDS: ACETYLCYSTEINE 20%(200MG/ML) SOL 4ML NEB SCH ×6 (02:24→22:25)
[2018-07-07] MEDS: ALBUTEROL SULF 2.5 MG/0.5ML(0.5%) NEB SOLN NEB SCH ×6 (02:24→22:25)
[2018-07-07] MEDS: IPRATROPIUM BROM 0.5 MG/2.5ML INH SOL NEB SCH ×6 (02:24→22:25)
[2018-07-07] MEDS: MIDAZOLAM DRIP 50 mg/50mL 50 ML IV SCH ×2 (04:14→17:33)
[2018-07-07 04:15] LABS: Basophils # (auto) 0 uL; Basophils % (auto) 0.4 % (0.0-2.0); Eosinophils # (auto) 0.3 uL; Eosinophils % (auto) 2.8 % (0.0-7.0); Hemoglobin 14.8 g/dL (13.5-17.5); Lymphocytes # (auto) 1.1 uL; Lymphocytes % (auto) 10.8 % (10.0-50.0); Mean Corpuscular Hemoglobin 29.2 pg (28.0-32.0); Mean Corpuscular Hgb Conc. 32.9 g/dL (32.0-36.0); Mean Corpuscular Volume 88.8 fL (80.0-100.0); Monocytes # (auto) 0.6 uL; Monocytes % (auto) 5.9 % (0.0-12.0); Neutrophils # (auto) 8.1 uL; Neutrophils % (auto) 80.1 % (37.0-80.0); Platelet Count (auto) 110 10^3/uL (140-450); Red Blood Cells 5.07 10^6/uL (4.5-5.90); Red Cell Distribution Width 17.1 % (11.8-14.3); White Blood Cell 10.1 10^3/uL (4.4-10.8)
[2018-07-07 04:26] LABS: INR 0.99 (0.9-1.15); Prothrombin Time 10.6 sec (9.27-12.13)
[2018-07-07 04:31] LABS: BUN/Creatinine Ratio 55.9; Calcium 7.8 mg/dL (8.5-10.1); Potassium 3.5 mmol/L (3.5-5.1)
[2018-07-07 04:34] LABS: Bilirubin, Total 1.6 mg/dL (0.2-1.0); Total Protein 5.1 g/dL (6.4-8.2)
[2018-07-07] MEDS: ONDANSETRON HCL 4 MG/2 ML VIAL IV PRN ×2 (04:49→20:12)
[2018-07-07] MEDS: SPIRONOLACTONE 25 MG TAB PO SCH ×2 (06:00→17:58)
[2018-07-07] MEDS: METOCLOPRAMIDE HCL 5MG/ml INJ 2ml VIAL IV SCH ×3 (06:09→22:29)
[2018-07-07] MEDS: chlordiazePOXIDE HCL 25 MG CAP PO SCH ×3 (06:11→22:29)
[2018-07-07] MEDS: DEXMEDETOMIDINE HCL 400 MCG in D5W 5% 96 ML IV SCH (06:20)
[2018-07-07] MEDS: Pro-Stat SF 30ml Vanilla GT SCH ×2 (08:00→17:58)
[2018-07-07] MEDS ORDERED: ROCURONIUM 10MG/ML 10ML VIAL IV ONE (09:18)
[2018-07-07] MEDS ORDERED: HYDROmorphone HCL 2 MG/ML VL IV PRN (09:45)
[2018-07-07] MEDS: SACUBITRIL-VALSARTAN 24mg/26mg TAB PO SCH ×2 (10:00→22:00)
[2018-07-07] MEDS: BUMETANIDE (0.25MG/ML) 4 ML VIAL IV SCH (10:00)
[2018-07-07] MEDS: POTASSIUM EFFERVESENT TAB 25 MEQ GT SCH (12:59)
[2018-07-07] MEDS: LEVOFLOXACIN 750MG 150 ML IV SCH (13:00)
[2018-07-07] MEDS: SODIUM CHLOR 0.9% PF (SALINE LOCK) 10ML VIAL/SYR IV SCH ×2 (13:00→22:00)
[2018-07-07] MEDS: THIAMINE 100mg/ml INJ (200mg/2ml VIAL) IV SCH (13:00)
[2018-07-07] MEDS: PANTOPRAZOLE 40 MG/10 ML VIAL IV SCH (13:00)
[2018-07-07] MEDS: DIGOXIN (250MCG/ML) 2 ML AMPULE IV SCH (13:04)
[2018-07-07] MEDS ORDERED: POTASSIUM CHL 20MEQ/100ML 100 ML IV ONE ×2 (13:39→13:45)
[2018-07-07] MEDS ORDERED: VANCOMYCIN 1,250 MG in D5W 5% 250 ML IV SCH (14:00)
[2018-07-07] MEDS: VANCOMYCIN 1,250 MG in SODIUM CHL 0.9% 250 ML IV SCH (16:59)
[2018-07-07] MEDS: AMIODARONE HCL 900 MG in DEXTROSE 500 ML IV SCH (17:32)
[2018-07-07] MEDS: PROPOFOL 100 ML IV SCH ×2 (19:24→23:25)
[2018-07-07] MEDS: ENOXAPARIN SOD 100 MG/1 ML SYRINGE SC SCH (22:29)
[2018-07-07] MEDS: traZODone HCL 50 MG TAB PO SCH (22:29)
[2018-07-08] VITALS (104 sets, daily range): BP systolic 76–126; BP diastolic 36–94
[2018-07-08] MEDS: ACCU-CHEK COMFORT CURVE STRIP VI SCH ×4 (00:08→17:31)
[2018-07-08] MEDS: METOPROLOL TARTRATE 1MG/1ML-5ML VIAL IV SCH ×5 (00:15→17:39)
[2018-07-08] MEDS: VANCOMYCIN 1,250 MG in SODIUM CHL 0.9% 250 ML IV SCH ×3 (01:00→16:49)
[2018-07-08] MEDS: MIDAZOLAM DRIP 50 mg/50mL 50 ML IV SCH ×2 (01:23→07:59)
[2018-07-08] MEDS: DEXMEDETOMIDINE HCL 400 MCG in D5W 5% 96 ML IV SCH ×2 (01:48→21:16)
[2018-07-08] MEDS: ALBUTEROL SULF 2.5 MG/0.5ML(0.5%) NEB SOLN NEB SCH ×6 (02:37→22:09)
[2018-07-08] MEDS: IPRATROPIUM BROM 0.5 MG/2.5ML INH SOL NEB SCH ×6 (02:38→22:09)
[2018-07-08] MEDS: ACETYLCYSTEINE 20%(200MG/ML) SOL 4ML NEB SCH ×6 (02:38→22:09)
[2018-07-08 03:58] LABS: Basophils # (auto) 0 uL; Basophils % (auto) 0.5 % (0.0-2.0); Eosinophils # (auto) 0.2 uL; Eosinophils % (auto) 2.1 % (0.0-7.0); Hematocrit 43.4 % (41.0-53.0); Hemoglobin 14.1 g/dL (13.5-17.5); Lymphocytes # (auto) 1.2 uL; Lymphocytes % (auto) 11.1 % (10.0-50.0); Mean Corpuscular Hemoglobin 28.6 pg (28.0-32.0); Mean Corpuscular Hgb Conc. 32.4 g/dL (32.0-36.0); Mean Corpuscular Volume 88.3 fL (80.0-100.0); Monocytes # (auto) 0.6 uL; Monocytes % (auto) 5.5 % (0.0-12.0); Neutrophils # (auto) 8.5 uL; Neutrophils % (auto) 80.8 % (37.0-80.0); Platelet Count (auto) 98 10^3/uL (140-450); Red Blood Cells 4.91 10^6/uL (4.5-5.90); White Blood Cell 10.5 10^3/uL (4.4-10.8)
[2018-07-08 04:12] LABS: Albumin 1.9 g/dL (3.4-5.0); Potassium 3.4 mmol/L (3.5-5.1)
[2018-07-08 04:14] LABS: Calcium 8.4 mg/dL (8.5-10.1)
[2018-07-08 04:17] LABS: Bilirubin, Total 1.8 mg/dL (0.2-1.0); Total Protein 4.9 g/dL (6.4-8.2)
[2018-07-08 04:19] LABS: BUN/Creatinine Ratio 35.7
[2018-07-08] MEDS: METOCLOPRAMIDE HCL 5MG/ml INJ 2ml VIAL IV SCH ×3 (06:00→22:20)
[2018-07-08] MEDS: chlordiazePOXIDE HCL 25 MG CAP PO SCH ×3 (06:00→22:20)
[2018-07-08] MEDS: InsuLIN REG 1unit/0.01ml Soln (100units/ml) SC SCH ×4 (06:00→17:31)
[2018-07-08] MEDS: SPIRONOLACTONE 25 MG TAB PO SCH ×2 (06:00→17:39)
[2018-07-08] MEDS: Pro-Stat SF 30ml Vanilla GT SCH ×2 (08:00→17:35)
[2018-07-08] MEDS: fentaNYL Drip 2500mCg/250mlNS 250 ML IV SCH ×2 (08:00→17:57)
[2018-07-08] MEDS: THIAMINE 100mg/ml INJ (200mg/2ml VIAL) IV SCH (09:12)
[2018-07-08] MEDS: PANTOPRAZOLE 40 MG/10 ML VIAL IV SCH (09:12)
[2018-07-08] MEDS: POTASSIUM EFFERVESENT TAB 25 MEQ GT SCH (09:12)
[2018-07-08] MEDS: DIGOXIN (250MCG/ML) 2 ML AMPULE IV SCH (09:13)
[2018-07-08] MEDS: BUMETANIDE (0.25MG/ML) 4 ML VIAL IV SCH (09:13)
[2018-07-08] MEDS: SODIUM CHLOR 0.9% PF (SALINE LOCK) 10ML VIAL/SYR IV SCH ×2 (09:14→22:20)
[2018-07-08] MEDS: PROPOFOL 100 ML IV SCH ×3 (09:58→17:57)
[2018-07-08] MEDS: NOREPINEPHRINE 8 MG/250ML KIT 250 ML IV SCH (09:58)
[2018-07-08] MEDS: SACUBITRIL-VALSARTAN 24mg/26mg TAB PO SCH ×2 (10:00→22:00)
[2018-07-08] MEDS: ENOXAPARIN SOD 100 MG/1 ML SYRINGE SC SCH ×2 (10:37→22:19)
[2018-07-08] MEDS: LEVOFLOXACIN 750MG 150 ML IV SCH (12:45)
[2018-07-08] MEDS: traZODone HCL 50 MG TAB PO SCH (22:20)
[2018-07-09] VITALS (106 sets, daily range): BP systolic 61–178; BP diastolic 22–107
[2018-07-09] MEDS: ACCU-CHEK COMFORT CURVE STRIP VI SCH ×4 (00:27→18:27)
[2018-07-09] MEDS: NOREPINEPHRINE 8 MG/250ML KIT 250 ML IV SCH ×2 (01:00→18:43)
[2018-07-09] MEDS: VANCOMYCIN 1,250 MG in SODIUM CHL 0.9% 250 ML IV SCH ×2 (01:05→09:15)
[2018-07-09] MEDS: AMIODARONE HCL 900 MG in DEXTROSE 500 ML IV SCH (01:33)
[2018-07-09] MEDS: ACETYLCYSTEINE 20%(200MG/ML) SOL 4ML NEB SCH ×6 (02:11→21:48)
[2018-07-09] MEDS: ALBUTEROL SULF 2.5 MG/0.5ML(0.5%) NEB SOLN NEB SCH ×6 (02:11→21:49)
[2018-07-09] MEDS: IPRATROPIUM BROM 0.5 MG/2.5ML INH SOL NEB SCH ×6 (02:11→21:48)
[2018-07-09] MEDS: PROPOFOL 100 ML IV SCH ×2 (02:22→09:15)
[2018-07-09 04:21] LABS: Basophils # (auto) 0.1 uL; Basophils % (auto) 0.8 % (0.0-2.0); Eosinophils # (auto) 0.4 uL; Eosinophils % (auto) 3.6 % (0.0-7.0); Hematocrit 44.9 % (41.0-53.0); Hemoglobin 14.5 g/dL (13.5-17.5); Lymphocytes # (auto) 0.8 uL; Lymphocytes % (auto) 7.7 % (10.0-50.0); Mean Corpuscular Hemoglobin 28.7 pg (28.0-32.0); Mean Corpuscular Hgb Conc. 32.3 g/dL (32.0-36.0); Mean Corpuscular Volume 89.1 fL (80.0-100.0); Monocytes # (auto) 0.8 uL; Monocytes % (auto) 7.5 % (0.0-12.0); Neutrophils # (auto) 8.7 uL; Neutrophils % (auto) 80.4 % (37.0-80.0); Platelet Count (auto) 112 10^3/uL (140-450); Red Blood Cells 5.04 10^6/uL (4.5-5.90); Red Cell Distribution Width 16.9 % (11.8-14.3); White Blood Cell 10.8 10^3/uL (4.4-10.8)
[2018-07-09] MEDS ORDERED: SPIRONOLACTONE 25 MG TAB ONE (05:47)
[2018-07-09] MEDS: METOPROLOL TARTRATE 1MG/1ML-5ML VIAL IV SCH ×4 (06:00→18:00)
[2018-07-09] MEDS: InsuLIN REG 1unit/0.01ml Soln (100units/ml) SC SCH ×4 (06:00→18:00)
[2018-07-09] MEDS: chlordiazePOXIDE HCL 25 MG CAP PO SCH ×3 (06:23→21:44)
[2018-07-09] MEDS: METOCLOPRAMIDE HCL 5MG/ml INJ 2ml VIAL IV SCH ×3 (06:23→21:44)
[2018-07-09] MEDS: SPIRONOLACTONE 25 MG TAB PO SCH ×2 (06:24→18:00)
[2018-07-09] MEDS: Pro-Stat SF 30ml Vanilla GT SCH ×2 (08:00→18:00)
[2018-07-09] MEDS: fentaNYL Drip 2500mCg/250mlNS 250 ML IV SCH (09:13)
[2018-07-09] MEDS ORDERED: LORazepam 2MG/ML-1ML VIAL IV PRN (09:30)
[2018-07-09] MEDS ORDERED: LEVOFLOXACIN 750MG 150 ML IV SCH (10:00)
[2018-07-09] MEDS: ENOXAPARIN SOD 100 MG/1 ML SYRINGE SC SCH ×2 (10:00→21:44)
[2018-07-09] MEDS: PANTOPRAZOLE 40 MG/10 ML VIAL IV SCH (10:13)
[2018-07-09] MEDS: DIGOXIN (250MCG/ML) 2 ML AMPULE IV SCH (10:13)
[2018-07-09] MEDS: THIAMINE 100mg/ml INJ (200mg/2ml VIAL) IV SCH (10:13)
[2018-07-09] MEDS: BUMETANIDE (0.25MG/ML) 4 ML VIAL IV SCH (10:14)
[2018-07-09] MEDS: POTASSIUM EFFERVESENT TAB 25 MEQ GT SCH (10:14)
[2018-07-09] MEDS: SACUBITRIL-VALSARTAN 24mg/26mg TAB PO SCH ×2 (10:14→21:55)
[2018-07-09] MEDS: SODIUM CHLOR 0.9% PF (SALINE LOCK) 10ML VIAL/SYR IV SCH ×2 (10:15→22:02)
[2018-07-09] MEDS: ACETAMINOPHEN 650 MG RECT SUPP PR PRN ×2 (10:18→23:31)
[2018-07-09 10:36] LABS: INR 0.98 (0.9-1.15); Partial Thromboplastin Time 30.3 sec (23.78-33.04); Prothrombin Time 10.5 sec (9.27-12.13)
[2018-07-09] MEDS: LEVOFLOXACIN 750MG 150 ML IV SCH (11:51)
[2018-07-09] MEDS: VANCOMYCIN 1,250 MG in D5W 5% 250 ML IV SCH (16:41)
[2018-07-09] MEDS: DEXMEDETOMIDINE HCL 400 MCG in D5W 5% 96 ML IV SCH (16:44)
[2018-07-09] MEDS: MIDAZOLAM DRIP 50 mg/50mL 50 ML IV SCH (19:44)
[2018-07-09] MEDS: LORazepam 2MG/ML-1ML VIAL IV PRN (19:45)
[2018-07-09] MEDS: HALOPERIDOL 5 MG TAB PO SCH (20:11)
[2018-07-09] MEDS: traZODone HCL 50 MG TAB PO SCH (21:55)
[2018-07-10] VITALS (103 sets, daily range): BP systolic 73–138; BP diastolic 26–111
[2018-07-10] MEDS: ACCU-CHEK COMFORT CURVE STRIP VI SCH ×5 (00:06→23:56)
[2018-07-10] MEDS: VANCOMYCIN 1,250 MG in D5W 5% 250 ML IV SCH ×2 (00:44→09:30)
[2018-07-10] MEDS: fentaNYL Drip 2500mCg/250mlNS 250 ML IV SCH ×2 (00:45→14:57)
[2018-07-10] MEDS: ALBUTEROL SULF 2.5 MG/0.5ML(0.5%) NEB SOLN NEB SCH ×6 (01:58→22:16)
[2018-07-10] MEDS: IPRATROPIUM BROM 0.5 MG/2.5ML INH SOL NEB SCH ×6 (01:58→22:16)
[2018-07-10] MEDS: ACETYLCYSTEINE 20%(200MG/ML) SOL 4ML NEB SCH ×6 (01:58→22:17)
[2018-07-10] MEDS: AMIODARONE HCL 900 MG in DEXTROSE 500 ML IV SCH (02:09)
[2018-07-10] MEDS: Jevity 1.2 Cal/Fiber 1 Liter GT SCH (03:30)
[2018-07-10 03:58] LABS: Basophils # (auto) 0.1 uL; Basophils % (auto) 0.7 % (0.0-2.0); Eosinophils # (auto) 0.3 uL; Eosinophils % (auto) 3.1 % (0.0-7.0); Hematocrit 44.7 % (41.0-53.0); Hemoglobin 14.4 g/dL (13.5-17.5); Lymphocytes # (auto) 0.9 uL; Lymphocytes % (auto) 8.3 % (10.0-50.0); Mean Corpuscular Hemoglobin 28.4 pg (28.0-32.0); Mean Corpuscular Hgb Conc. 32.3 g/dL (32.0-36.0); Mean Corpuscular Volume 87.7 fL (80.0-100.0); Monocytes # (auto) 0.9 uL; Monocytes % (auto) 8.6 % (0.0-12.0); Neutrophils # (auto) 8.7 uL; Neutrophils % (auto) 79.3 % (37.0-80.0); Nucleated Red Blood Cells % 0.1 %; Platelet Count (auto) 101 10^3/uL (140-450); Red Cell Distribution Width 16.6 % (11.8-14.3)
[2018-07-10 04:19] LABS: BUN/Creatinine Ratio 21.6; Potassium 3.3 mmol/L (3.5-5.1)
[2018-07-10] MEDS: chlordiazePOXIDE HCL 25 MG CAP PO SCH ×3 (05:32→20:42)
[2018-07-10] MEDS: METOCLOPRAMIDE HCL 5MG/ml INJ 2ml VIAL IV SCH ×3 (05:32→22:20)
[2018-07-10] MEDS: SPIRONOLACTONE 25 MG TAB PO SCH ×2 (05:32→18:10)
[2018-07-10] MEDS: InsuLIN REG 1unit/0.01ml Soln (100units/ml) SC SCH ×5 (05:33→23:56)
[2018-07-10] MEDS: METOPROLOL TARTRATE 1MG/1ML-5ML VIAL IV SCH ×2 (05:35)
[2018-07-10] MEDS: Pro-Stat SF 30ml Vanilla GT SCH ×2 (08:00→18:00)
[2018-07-10] MEDS: THIAMINE 100mg/ml INJ (200mg/2ml VIAL) IV SCH (09:55)
[2018-07-10] MEDS: POTASSIUM EFFERVESENT TAB 25 MEQ GT SCH (09:55)
[2018-07-10] MEDS: DIGOXIN (250MCG/ML) 2 ML AMPULE IV SCH (09:56)
[2018-07-10] MEDS: BUMETANIDE (0.25MG/ML) 4 ML VIAL IV SCH (09:56)
[2018-07-10] MEDS: SODIUM CHLOR 0.9% PF (SALINE LOCK) 10ML VIAL/SYR IV SCH ×2 (09:57→22:00)
[2018-07-10] MEDS: PANTOPRAZOLE 40 MG/10 ML VIAL IV SCH (09:57)
[2018-07-10] MEDS: HALOPERIDOL 5 MG TAB PO SCH ×2 (09:57→22:21)
[2018-07-10] MEDS: SACUBITRIL-VALSARTAN 24mg/26mg TAB PO SCH ×2 (09:57→22:00)
[2018-07-10] MEDS: ENOXAPARIN SOD 100 MG/1 ML SYRINGE SC SCH (09:57)
[2018-07-10] MEDS: LORazepam 2MG/ML-1ML VIAL IV PRN (09:58)
[2018-07-10] MEDS: DEXMEDETOMIDINE HCL 400 MCG in D5W 5% 96 ML IV SCH (12:12)
[2018-07-10] MEDS: LEVOFLOXACIN 750MG 150 ML IV SCH (13:00)
[2018-07-10] MEDS ORDERED: FLEET ENEMA(ADULT) 135 ML PR ONE (13:15)
[2018-07-10] MEDS: NOREPINEPHRINE 8 MG/250ML KIT 250 ML IV SCH (14:23)
[2018-07-10] MEDS: VANCOMYCIN 1,500 MG in D5W 5% 250 ML IV SCH (18:05)
[2018-07-10] MEDS: MIDAZOLAM DRIP 50 mg/50mL 50 ML IV SCH (19:44)
[2018-07-10] MEDS: PROPOFOL 100 ML IV SCH (20:59)
[2018-07-10] MEDS: traZODone HCL 50 MG TAB PO SCH (22:00)
[2018-07-10] MEDS: APIXABAN 5 MG TAB PO SCH (22:20)
[2018-07-10] MEDS: AMIODARONE HCL 200 MG TAB PO SCH (22:20)
[2018-07-11] VITALS (108 sets, daily range): BP systolic 85–154; BP diastolic 42–97
[2018-07-11] MEDS: VANCOMYCIN 1,500 MG in D5W 5% 250 ML IV SCH ×3 (02:00→18:00)
[2018-07-11] MEDS: IPRATROPIUM BROM 0.5 MG/2.5ML INH SOL NEB SCH ×6 (02:22→22:26)
[2018-07-11] MEDS: ACETYLCYSTEINE 20%(200MG/ML) SOL 4ML NEB SCH ×6 (02:22→22:26)
[2018-07-11] MEDS: ALBUTEROL SULF 2.5 MG/0.5ML(0.5%) NEB SOLN NEB SCH ×6 (02:22→22:27)
[2018-07-11 04:24] LABS: Basophils # (auto) 0.1 uL; Basophils % (auto) 0.8 % (0.0-2.0); Eosinophils # (auto) 0.3 uL; Eosinophils % (auto) 3.2 % (0.0-7.0); Hematocrit 45.4 % (41.0-53.0); Lymphocytes # (auto) 0.9 uL; Lymphocytes % (auto) 9.5 % (10.0-50.0); Mean Corpuscular Hemoglobin 29.2 pg (28.0-32.0); Mean Corpuscular Volume 88.3 fL (80.0-100.0); Monocytes # (auto) 1.1 uL; Monocytes % (auto) 11.8 % (0.0-12.0); Neutrophils # (auto) 6.8 uL; Neutrophils % (auto) 74.7 % (37.0-80.0); Platelet Count (auto) 106 10^3/uL (140-450); Red Blood Cells 5.14 10^6/uL (4.5-5.90); Red Cell Distribution Width 16.7 % (11.8-14.3)
[2018-07-11 04:47] LABS: Calcium 7.8 mg/dL (8.5-10.1); Potassium 3.1 mmol/L (3.5-5.1)
[2018-07-11 04:49] LABS: BUN/Creatinine Ratio 23.3
[2018-07-11 04:51] LABS: Bilirubin, Total 1.3 mg/dL (0.2-1.0); Total Protein 5.9 g/dL (6.4-8.2)
[2018-07-11] MEDS: chlordiazePOXIDE HCL 25 MG CAP PO SCH ×3 (05:30→21:48)
[2018-07-11] MEDS: METOCLOPRAMIDE HCL 5MG/ml INJ 2ml VIAL IV SCH ×3 (05:30→21:48)
[2018-07-11] MEDS: ACCU-CHEK COMFORT CURVE STRIP VI SCH ×4 (05:31→23:52)
[2018-07-11] MEDS: InsuLIN REG 1unit/0.01ml Soln (100units/ml) SC SCH ×4 (05:31→23:52)
[2018-07-11] MEDS: SPIRONOLACTONE 25 MG TAB PO SCH ×2 (05:39→18:20)
[2018-07-11] MEDS: NOREPINEPHRINE 8 MG/250ML KIT 250 ML IV SCH (06:17)
[2018-07-11] MEDS: Pro-Stat SF 30ml Vanilla GT SCH ×2 (08:00→18:00)
[2018-07-11] MEDS: POTASSIUM EFFERVESENT TAB 25 MEQ GT SCH (09:36)
[2018-07-11] MEDS: AMIODARONE HCL 200 MG TAB PO SCH ×2 (09:37→21:48)
[2018-07-11] MEDS: SACUBITRIL-VALSARTAN 24mg/26mg TAB PO SCH ×2 (09:37→22:00)
[2018-07-11] MEDS: HALOPERIDOL 5 MG TAB PO SCH ×2 (09:37→20:52)
[2018-07-11] MEDS: APIXABAN 5 MG TAB PO SCH ×2 (09:37→21:48)
[2018-07-11] MEDS: PANTOPRAZOLE 40 MG/10 ML VIAL IV SCH (09:45)
[2018-07-11] MEDS: THIAMINE 100mg/ml INJ (200mg/2ml VIAL) IV SCH (09:46)
[2018-07-11] MEDS: DIGOXIN (250MCG/ML) 2 ML AMPULE IV SCH (09:46)
[2018-07-11] MEDS: BUMETANIDE (0.25MG/ML) 4 ML VIAL IV SCH (10:00)
[2018-07-11] MEDS: SODIUM CHLOR 0.9% PF (SALINE LOCK) 10ML VIAL/SYR IV SCH ×2 (10:30→22:25)
[2018-07-11] MEDS: LEVOFLOXACIN 750MG 150 ML IV SCH (12:06)
[2018-07-11] MEDS: LORazepam 2MG/ML-1ML VIAL IV PRN ×2 (15:33→21:59)
[2018-07-11] MEDS: Jevity 1.2 Cal/Fiber 1 Liter GT SCH ×2 (18:00→22:09)
[2018-07-11] MEDS: traZODone HCL 50 MG TAB PO SCH (21:48)
[2018-07-11] MEDS: ONDANSETRON HCL 4 MG/2 ML VIAL IV PRN (23:08)
[2018-07-12] VITALS (107 sets, daily range): BP systolic 84–156; BP diastolic 35–101
[2018-07-12] MEDS: Jevity 1.2 Cal/Fiber 1 Liter GT SCH ×6 (02:00→22:00)
[2018-07-12] MEDS: ALBUTEROL SULF 2.5 MG/0.5ML(0.5%) NEB SOLN NEB SCH ×6 (02:24→22:44)
[2018-07-12] MEDS: IPRATROPIUM BROM 0.5 MG/2.5ML INH SOL NEB SCH ×6 (02:24→22:44)
[2018-07-12] MEDS: ACETYLCYSTEINE 20%(200MG/ML) SOL 4ML NEB SCH ×6 (02:25→22:44)
[2018-07-12 04:06] LABS: Basophils # (auto) 0.1 uL; Basophils % (auto) 0.6 % (0.0-2.0); Eosinophils # (auto) 0.2 uL; Eosinophils % (auto) 2.3 % (0.0-7.0); Hematocrit 44.6 % (41.0-53.0); Hemoglobin 14.4 g/dL (13.5-17.5); Lymphocytes # (auto) 1.2 uL; Lymphocytes % (auto) 14.3 % (10.0-50.0); Mean Corpuscular Hemoglobin 28.2 pg (28.0-32.0); Mean Corpuscular Hgb Conc. 32.4 g/dL (32.0-36.0); Mean Corpuscular Volume 87.2 fL (80.0-100.0); Monocytes # (auto) 1.2 uL; Monocytes % (auto) 14.3 % (0.0-12.0); Neutrophils # (auto) 5.9 uL; Neutrophils % (auto) 68.5 % (37.0-80.0); Nucleated Red Blood Cells % 0.1 %; Platelet Count (auto) 94 10^3/uL (140-450); Red Blood Cells 5.11 10^6/uL (4.5-5.90); Red Cell Distribution Width 16.7 % (11.8-14.3); White Blood Cell 8.6 10^3/uL (4.4-10.8)
[2018-07-12 04:25] LABS: Albumin 2.2 g/dL (3.4-5.0); BUN/Creatinine Ratio 25.9; Bilirubin, Total 1.1 mg/dL (0.2-1.0); Calcium 8.2 mg/dL (8.5-10.1); Potassium 3.4 mmol/L (3.5-5.1)
[2018-07-12] MEDS: METOCLOPRAMIDE HCL 5MG/ml INJ 2ml VIAL IV SCH ×3 (05:31→22:00)
[2018-07-12] MEDS: chlordiazePOXIDE HCL 25 MG CAP PO SCH ×3 (05:32→22:00)
[2018-07-12] MEDS: SPIRONOLACTONE 25 MG TAB PO SCH ×2 (05:32→17:55)
[2018-07-12] MEDS: NOREPINEPHRINE 8 MG/250ML KIT 250 ML IV SCH (05:34)
[2018-07-12] MEDS: InsuLIN REG 1unit/0.01ml Soln (100units/ml) SC SCH ×3 (06:00→17:58)
[2018-07-12] MEDS: ACCU-CHEK COMFORT CURVE STRIP VI SCH ×3 (06:26→17:56)
[2018-07-12] MEDS: Pro-Stat SF 30ml Vanilla GT SCH ×2 (08:00→17:42)
[2018-07-12] MEDS: THIAMINE 100mg/ml INJ (200mg/2ml VIAL) IV SCH (09:31)
[2018-07-12] MEDS: BUMETANIDE (0.25MG/ML) 4 ML VIAL IV SCH (09:31)
[2018-07-12] MEDS: HALOPERIDOL 5 MG TAB PO SCH ×2 (09:33→22:00)
[2018-07-12] MEDS: AMIODARONE HCL 200 MG TAB PO SCH ×2 (09:33→22:00)
[2018-07-12] MEDS: POTASSIUM EFFERVESENT TAB 25 MEQ GT SCH (09:34)
[2018-07-12] MEDS: APIXABAN 5 MG TAB PO SCH ×2 (09:34→22:00)
[2018-07-12] MEDS: SODIUM CHLOR 0.9% PF (SALINE LOCK) 10ML VIAL/SYR IV SCH ×2 (09:35→22:00)
[2018-07-12] MEDS: DIGOXIN (250MCG/ML) 2 ML AMPULE IV SCH (09:35)
[2018-07-12] MEDS: SACUBITRIL-VALSARTAN 24mg/26mg TAB PO SCH ×2 (09:36→22:00)
[2018-07-12] MEDS: PANTOPRAZOLE 40 MG/10 ML VIAL IV SCH (10:00)
[2018-07-12] MEDS: VANCOMYCIN 1,500 MG in D5W 5% 250 ML IV SCH (10:15)
[2018-07-12] MEDS: LEVOFLOXACIN 750MG 150 ML IV SCH (12:13)
[2018-07-12] MEDS: traZODone HCL 50 MG TAB PO SCH (22:00)
[2018-07-13] VITALS (106 sets, daily range): BP systolic 73–149; BP diastolic 39–111
[2018-07-13] MEDS: Jevity 1.2 Cal/Fiber 1 Liter GT SCH ×6 (02:06→22:06)
[2018-07-13] MEDS: ALBUTEROL SULF 2.5 MG/0.5ML(0.5%) NEB SOLN NEB SCH ×6 (02:07→22:10)
[2018-07-13] MEDS: IPRATROPIUM BROM 0.5 MG/2.5ML INH SOL NEB SCH ×6 (02:07→22:10)
[2018-07-13] MEDS: ACETYLCYSTEINE 20%(200MG/ML) SOL 4ML NEB SCH ×7 (02:07→22:10)
[2018-07-13 04:03] LABS: Basophils # (auto) 0.1 uL; Eosinophils # (auto) 0.2 uL; Eosinophils % (auto) 2.8 % (0.0-7.0); Hematocrit 45.4 % (41.0-53.0); Hemoglobin 14.6 g/dL (13.5-17.5); Lymphocytes % (auto) 11.5 % (10.0-50.0); Mean Corpuscular Hemoglobin 28.2 pg (28.0-32.0); Mean Corpuscular Hgb Conc. 32.2 g/dL (32.0-36.0); Mean Corpuscular Volume 87.4 fL (80.0-100.0); Monocytes # (auto) 1.2 uL; Monocytes % (auto) 14.4 % (0.0-12.0); Neutrophils # (auto) 5.9 uL; Neutrophils % (auto) 70.3 % (37.0-80.0); Platelet Count (auto) 102 10^3/uL (140-450); Red Blood Cells 5.19 10^6/uL (4.5-5.90); Red Cell Distribution Width 16.6 % (11.8-14.3); White Blood Cell 8.4 10^3/uL (4.4-10.8)
[2018-07-13 04:28] LABS: BUN/Creatinine Ratio 26.4; Calcium 8.1 mg/dL (8.5-10.1); Potassium 3.7 mmol/L (3.5-5.1)
[2018-07-13] MEDS: SPIRONOLACTONE 25 MG TAB PO SCH ×2 (06:00→18:54)
[2018-07-13] MEDS: InsuLIN REG 1unit/0.01ml Soln (100units/ml) SC SCH ×4 (06:00→18:00)
[2018-07-13] MEDS: METOCLOPRAMIDE HCL 5MG/ml INJ 2ml VIAL IV SCH ×3 (06:00→22:00)
[2018-07-13] MEDS: chlordiazePOXIDE HCL 25 MG CAP PO SCH ×3 (06:00→22:06)
[2018-07-13] MEDS: ACCU-CHEK COMFORT CURVE STRIP VI SCH ×4 (06:00→18:46)
[2018-07-13] MEDS: Pro-Stat SF 30ml Vanilla GT SCH ×2 (08:00→18:00)
[2018-07-13] MEDS: DIGOXIN (250MCG/ML) 2 ML AMPULE IV SCH (10:30)
[2018-07-13] MEDS: PANTOPRAZOLE 40 MG/10 ML VIAL IV SCH (10:30)
[2018-07-13] MEDS: POTASSIUM EFFERVESENT TAB 25 MEQ GT SCH (10:30)
[2018-07-13] MEDS: SACUBITRIL-VALSARTAN 24mg/26mg TAB PO SCH ×2 (10:30→22:06)
[2018-07-13] MEDS: HALOPERIDOL 5 MG TAB PO SCH ×2 (10:30→22:06)
[2018-07-13] MEDS: AMIODARONE HCL 200 MG TAB PO SCH ×2 (10:30→22:06)
[2018-07-13] MEDS: BUMETANIDE (0.25MG/ML) 4 ML VIAL IV SCH (10:30)
[2018-07-13] MEDS: THIAMINE 100mg/ml INJ (200mg/2ml VIAL) IV SCH (10:30)
[2018-07-13] MEDS: APIXABAN 5 MG TAB PO SCH ×2 (10:30→22:06)
[2018-07-13] MEDS: SODIUM CHLOR 0.9% PF (SALINE LOCK) 10ML VIAL/SYR IV SCH ×2 (10:30→22:06)
[2018-07-13] MEDS: VANCOMYCIN 1,500 MG in D5W 5% 250 ML IV SCH (12:00)
[2018-07-13] MEDS: LEVOFLOXACIN 750MG 150 ML IV SCH (14:00)
[2018-07-13] MEDS: LORazepam 2MG/ML-1ML VIAL IV PRN (17:25)
[2018-07-13] MEDS ORDERED: ACETAMINOPHEN 325 MG TAB PO ONE (21:36)
[2018-07-13] MEDS: ACETAMINOPHEN 325 MG TAB PO PRN (22:05)
[2018-07-13] MEDS: traZODone HCL 50 MG TAB PO SCH (22:06)
[2018-07-14] VITALS (96 sets, daily range): BP systolic 75–133; BP diastolic 43–105
[2018-07-14] MEDS: Jevity 1.2 Cal/Fiber 1 Liter GT SCH ×5 (01:59→22:18)
[2018-07-14] MEDS: IPRATROPIUM BROM 0.5 MG/2.5ML INH SOL NEB SCH ×6 (02:28→21:54)
[2018-07-14] MEDS: ALBUTEROL SULF 2.5 MG/0.5ML(0.5%) NEB SOLN NEB SCH ×6 (02:28→21:54)
[2018-07-14] MEDS: ACETYLCYSTEINE 20%(200MG/ML) SOL 4ML NEB SCH ×6 (02:28→21:55)
[2018-07-14] MEDS: chlordiazePOXIDE HCL 25 MG CAP PO SCH ×3 (06:00→22:09)
[2018-07-14] MEDS: SPIRONOLACTONE 25 MG TAB PO SCH ×2 (06:00→18:33)
[2018-07-14] MEDS: METOCLOPRAMIDE HCL 5MG/ml INJ 2ml VIAL IV SCH ×3 (06:00→22:00)
[2018-07-14] MEDS: ACCU-CHEK COMFORT CURVE STRIP VI SCH ×5 (06:00→23:50)
[2018-07-14] MEDS: InsuLIN REG 1unit/0.01ml Soln (100units/ml) SC SCH ×5 (06:00→23:50)
[2018-07-14] MEDS: Pro-Stat SF 30ml Vanilla GT SCH ×2 (08:00→18:28)
[2018-07-14 09:33] LABS: BUN/Creatinine Ratio 35.7; Calcium 8.3 mg/dL (8.5-10.1)
[2018-07-14 10:08] LABS: Hematocrit 47.7 % (41.0-53.0); Hemoglobin 15.3 g/dL (13.5-17.5); Mean Corpuscular Volume 87.5 fL (80.0-100.0); Platelet Count (auto) 96 10^3/uL (140-450); Red Blood Cells 5.45 10^6/uL (4.5-5.90); White Blood Cell 7.8 10^3/uL (4.4-10.8)
[2018-07-14] MEDS: PANTOPRAZOLE 40 MG/10 ML VIAL IV SCH (10:31)
[2018-07-14 10:32] LABS: Basophils % (manual) 0 (0.0-2.0); Blast Cells 0; Promyelocytes % 0; Reactive Lymphocytes 0
[2018-07-14] MEDS: POTASSIUM EFFERVESENT TAB 25 MEQ GT SCH (10:32)
[2018-07-14] MEDS: THIAMINE 100mg/ml INJ (200mg/2ml VIAL) IV SCH (10:32)
[2018-07-14] MEDS: BUMETANIDE (0.25MG/ML) 4 ML VIAL IV SCH (10:33)
[2018-07-14] MEDS: DIGOXIN (250MCG/ML) 2 ML AMPULE IV SCH (10:33)
[2018-07-14] MEDS: SODIUM CHLOR 0.9% PF (SALINE LOCK) 10ML VIAL/SYR IV SCH ×2 (10:33→22:17)
[2018-07-14] MEDS: SACUBITRIL-VALSARTAN 24mg/26mg TAB PO SCH ×2 (10:34→22:00)
[2018-07-14] MEDS: APIXABAN 5 MG TAB PO SCH ×2 (10:34→22:10)
[2018-07-14] MEDS: AMIODARONE HCL 200 MG TAB PO SCH ×2 (10:34→22:12)
[2018-07-14] MEDS: ACETAMINOPHEN 325 MG TAB PO PRN ×2 (10:35→18:28)
[2018-07-14] MEDS: HALOPERIDOL 5 MG TAB PO SCH ×2 (10:59→22:10)
[2018-07-14] MEDS: VANCOMYCIN 1,500 MG in D5W 5% 250 ML IV SCH (11:11)
[2018-07-14 11:16] LABS: Band Neutrophils % (manual) 1; Eosinophils % (manual) 1 (0-7); Lymphocytes % (manual) 12 (10.0-50.0); Metamyelocytes % 2; Monocytes % (manual) 14 (0-12); Myelocytes % 1
[2018-07-14] MEDS: NOREPINEPHRINE 8 MG/250ML KIT 250 ML IV SCH (11:20)
[2018-07-14] MEDS: LEVOFLOXACIN 750MG 150 ML IV SCH (14:00)
[2018-07-14 19:17] LABS: Urine Bacteria NONE SEEN /hpf (None Seen); Urine Blood 2+ /uL (Negative); Urine Mucus FEW (None Seen); Urine Specific Gravity 1.007 (1.001-1.035); Urine WBC 1 /hpf (0 - 3)
[2018-07-14] MEDS: traZODone HCL 50 MG TAB PO SCH (22:09)
[2018-07-15] VITALS (70 sets, daily range): BP systolic 120–167; BP diastolic 56–84
[2018-07-15] MEDS: NOREPINEPHRINE 8 MG/250ML KIT 250 ML IV SCH (01:00)
[2018-07-15] MEDS: IPRATROPIUM BROM 0.5 MG/2.5ML INH SOL NEB SCH ×6 (01:58→22:26)
[2018-07-15] MEDS: ALBUTEROL SULF 2.5 MG/0.5ML(0.5%) NEB SOLN NEB SCH ×6 (01:58→22:26)
[2018-07-15] MEDS: ACETYLCYSTEINE 20%(200MG/ML) SOL 4ML NEB SCH ×6 (01:59→22:26)
[2018-07-15] MEDS: Jevity 1.2 Cal/Fiber 1 Liter GT SCH ×7 (02:17→22:22)
[2018-07-15 03:48] LABS: Hematocrit 45.3 % (41.0-53.0); Hemoglobin 14.8 g/dL (13.5-17.5); Mean Corpuscular Hemoglobin 28.7 pg (28.0-32.0); Mean Corpuscular Hgb Conc. 32.8 g/dL (32.0-36.0); Mean Corpuscular Volume 87.5 fL (80.0-100.0); Platelet Count (auto) 94 10^3/uL (140-450); Red Blood Cells 5.17 10^6/uL (4.5-5.90); Red Cell Distribution Width 16.7 % (11.8-14.3); White Blood Cell 7.9 10^3/uL (4.4-10.8)
[2018-07-15 03:52] LABS: Basophils % (manual) 0 (0.0-2.0); Blast Cells 0; Metamyelocytes % 0; Myelocytes % 0; Promyelocytes % 0; Reactive Lymphocytes 0
[2018-07-15 04:11] LABS: Albumin 2.4 g/dL (3.4-5.0); BUN/Creatinine Ratio 37.3; Calcium 8.2 mg/dL (8.5-10.1); Potassium 3.9 mmol/L (3.5-5.1); Total Protein 6.5 g/dL (6.4-8.2)
[2018-07-15 04:26] LABS: Band Neutrophils % (manual) 2; Eosinophils % (manual) 4 (0-7); Lymphocytes % (manual) 10 (10.0-50.0); Monocytes % (manual) 13 (0-12)
[2018-07-15] MEDS ORDERED: VANCOMYCIN 1,500 MG in D5W 5% 250 ML IV SCH (05:00)
[2018-07-15] MEDS: METOCLOPRAMIDE HCL 5MG/ml INJ 2ml VIAL IV SCH (05:51)
[2018-07-15] MEDS: ACCU-CHEK COMFORT CURVE STRIP VI SCH ×3 (05:52→18:04)
[2018-07-15] MEDS: InsuLIN REG 1unit/0.01ml Soln (100units/ml) SC SCH ×3 (06:00→18:00)
[2018-07-15] MEDS: chlordiazePOXIDE HCL 25 MG CAP PO SCH (06:22)
[2018-07-15] MEDS: SPIRONOLACTONE 25 MG TAB PO SCH ×2 (06:22→18:15)
[2018-07-15] MEDS: Pro-Stat SF 30ml Vanilla GT SCH ×2 (08:00→18:04)
[2018-07-15] MEDS: PANTOPRAZOLE 40 MG/10 ML VIAL IV SCH (09:56)
[2018-07-15] MEDS: THIAMINE 100mg/ml INJ (200mg/2ml VIAL) IV SCH (09:56)
[2018-07-15] MEDS: BUMETANIDE (0.25MG/ML) 4 ML VIAL IV SCH (09:57)
[2018-07-15] MEDS: DIGOXIN (250MCG/ML) 2 ML AMPULE IV SCH (09:57)
[2018-07-15] MEDS: HALOPERIDOL 5 MG TAB PO SCH (09:58)
[2018-07-15] MEDS: APIXABAN 5 MG TAB PO SCH ×2 (09:58→22:21)
[2018-07-15] MEDS: SODIUM CHLOR 0.9% PF (SALINE LOCK) 10ML VIAL/SYR IV SCH ×2 (09:58→22:22)
[2018-07-15] MEDS: SACUBITRIL-VALSARTAN 24mg/26mg TAB PO SCH ×2 (09:58→22:00)
[2018-07-15] MEDS: AMIODARONE HCL 200 MG TAB PO SCH ×2 (09:58→22:21)
[2018-07-15] MEDS: POTASSIUM EFFERVESENT TAB 25 MEQ GT SCH (10:02)
[2018-07-15] MEDS: LORazepam 2MG/ML-1ML VIAL IV PRN (11:04)
[2018-07-15] MEDS: LEVOFLOXACIN 750MG 150 ML IV SCH (11:36)
[2018-07-15] MEDS ORDERED: LORazepam 0.5 MG TAB PO PRN (13:15)
[2018-07-15] MEDS: HYDROcodone-ACET 10/325MG TAB PO PRN ×2 (13:22→19:56)
[2018-07-15 17:33] LABS: Basophils # (auto) 0 uL; Basophils % (auto) 0.5 % (0.0-2.0); Eosinophils # (auto) 0.1 uL; Eosinophils % (auto) 0.6 % (0.0-7.0); Hemoglobin 15.4 g/dL (13.5-17.5); Lymphocytes # (auto) 0.8 uL; Lymphocytes % (auto) 8.6 % (10.0-50.0); Mean Corpuscular Hemoglobin 28.5 pg (28.0-32.0); Mean Corpuscular Hgb Conc. 32.7 g/dL (32.0-36.0); Mean Corpuscular Volume 87.1 fL (80.0-100.0); Monocytes # (auto) 0.9 uL; Monocytes % (auto) 9.6 % (0.0-12.0); Neutrophils # (auto) 7.6 uL; Neutrophils % (auto) 80.7 % (37.0-80.0); Nucleated Red Blood Cells % 0.1 %; Platelet Count (auto) 93 10^3/uL (140-450); Red Blood Cells 5.39 10^6/uL (4.5-5.90); Red Cell Distribution Width 16.5 % (11.8-14.3); White Blood Cell 9.4 10^3/uL (4.4-10.8)
[2018-07-15 17:41] LABS: Albumin 2.6 g/dL (3.4-5.0); BUN/Creatinine Ratio 33.8; Bilirubin, Total 0.9 mg/dL (0.2-1.0); Calcium 8.5 mg/dL (8.5-10.1); Potassium 4.2 mmol/L (3.5-5.1)
[2018-07-16] VITALS (59 sets, daily range): BP systolic 89–141; BP diastolic 41–99
[2018-07-16] MEDS: ACCU-CHEK COMFORT CURVE STRIP VI SCH ×4 (00:29→18:10)
[2018-07-16] MEDS: InsuLIN REG 1unit/0.01ml Soln (100units/ml) SC SCH ×4 (00:29→18:00)
[2018-07-16] MEDS: NOREPINEPHRINE 8 MG/250ML KIT 250 ML IV SCH (01:00)
[2018-07-16] MEDS: Jevity 1.2 Cal/Fiber 1 Liter GT SCH ×6 (02:00→22:00)
[2018-07-16] MEDS: ALBUTEROL SULF 2.5 MG/0.5ML(0.5%) NEB SOLN NEB SCH ×6 (02:31→22:21)
[2018-07-16] MEDS: ACETYLCYSTEINE 20%(200MG/ML) SOL 4ML NEB SCH ×6 (02:31→22:21)
[2018-07-16] MEDS: IPRATROPIUM BROM 0.5 MG/2.5ML INH SOL NEB SCH ×6 (02:32→22:21)
[2018-07-16] MEDS: HYDROcodone-ACET 10/325MG TAB PO PRN ×3 (05:03→18:17)
[2018-07-16] MEDS: SPIRONOLACTONE 25 MG TAB PO SCH ×2 (05:04→18:10)
[2018-07-16] MEDS: Pro-Stat SF 30ml Vanilla GT SCH ×2 (08:00→18:10)
[2018-07-16] MEDS: SACUBITRIL-VALSARTAN 24mg/26mg TAB PO SCH ×2 (09:33→21:39)
[2018-07-16] MEDS: APIXABAN 5 MG TAB PO SCH ×2 (09:33→21:39)
[2018-07-16] MEDS: AMIODARONE HCL 200 MG TAB PO SCH ×2 (09:33→21:38)
[2018-07-16] MEDS: THIAMINE 100mg/ml INJ (200mg/2ml VIAL) IV SCH (09:34)
[2018-07-16] MEDS: DIGOXIN (250MCG/ML) 2 ML AMPULE IV SCH (09:34)
[2018-07-16] MEDS: SODIUM CHLOR 0.9% PF (SALINE LOCK) 10ML VIAL/SYR IV SCH ×2 (09:35→22:00)
[2018-07-16] MEDS: POTASSIUM EFFERVESENT TAB 25 MEQ GT SCH (09:35)
[2018-07-16] MEDS: PANTOPRAZOLE 40 MG/10 ML VIAL IV SCH (09:35)
[2018-07-16] MEDS: BUMETANIDE (0.25MG/ML) 4 ML VIAL IV SCH (09:35)
[2018-07-16] MEDS ORDERED: ALBUAER3 IN (18:42)
[2018-07-16] MEDS ORDERED: GABA300C10 PO (18:42)
[2018-07-16] MEDS ORDERED: ALBU2TAB4 NEB (18:42)
[2018-07-16] MEDS ORDERED: LISI30TA36 PO (18:42)
[2018-07-16] MEDS ORDERED: BECL40AE11 IN (18:42)
[2018-07-17] VITALS (42 sets, daily range): BP systolic 97–124; BP diastolic 51–80
[2018-07-17] MEDS: NOREPINEPHRINE 8 MG/250ML KIT 250 ML IV SCH (00:46)
[2018-07-17] MEDS: Jevity 1.2 Cal/Fiber 1 Liter GT SCH ×6 (02:05→22:00)
[2018-07-17] MEDS: ALBUTEROL SULF 2.5 MG/0.5ML(0.5%) NEB SOLN NEB SCH ×6 (02:42→22:09)
[2018-07-17] MEDS: IPRATROPIUM BROM 0.5 MG/2.5ML INH SOL NEB SCH ×6 (02:43→22:09)
[2018-07-17] MEDS: ACETYLCYSTEINE 20%(200MG/ML) SOL 4ML NEB SCH ×6 (02:43→22:09)
[2018-07-17 03:52] LABS: Hematocrit 45.5 % (41.0-53.0); Hemoglobin 15.1 g/dL (13.5-17.5); Mean Corpuscular Hemoglobin 28.7 pg (28.0-32.0); Mean Corpuscular Hgb Conc. 33.1 g/dL (32.0-36.0); Mean Corpuscular Volume 86.5 fL (80.0-100.0); Platelet Count (auto) 115 10^3/uL (140-450); Red Blood Cells 5.26 10^6/uL (4.5-5.90); Red Cell Distribution Width 16.7 % (11.8-14.3); White Blood Cell 7.2 10^3/uL (4.4-10.8)
[2018-07-17 03:54] LABS: Basophils % (manual) 0 (0.0-2.0); Blast Cells 0; Myelocytes % 0; Promyelocytes % 0; Reactive Lymphocytes 0
[2018-07-17] MEDS: HYDROcodone-ACET 10/325MG TAB PO PRN ×2 (04:00→11:51)
[2018-07-17 04:09] LABS: Albumin 2.5 g/dL (3.4-5.0); Calcium 8.5 mg/dL (8.5-10.1); Potassium 4.2 mmol/L (3.5-5.1)
[2018-07-17 04:11] LABS: BUN/Creatinine Ratio 43.1
[2018-07-17 04:14] LABS: Bilirubin, Total 0.8 mg/dL (0.2-1.0)
[2018-07-17 04:51] LABS: Eosinophils % (manual) 2 (0-7); Lymphocytes % (manual) 14 (10.0-50.0); Metamyelocytes % 2
[2018-07-17 04:53] LABS: Band Neutrophils % (manual) 2; Monocytes % (manual) 10 (0-12)
[2018-07-17] MEDS: InsuLIN REG 1unit/0.01ml Soln (100units/ml) SC SCH ×5 (06:02→23:44)
[2018-07-17] MEDS: ACCU-CHEK COMFORT CURVE STRIP VI SCH ×5 (06:02→23:44)
[2018-07-17] MEDS: SPIRONOLACTONE 25 MG TAB PO SCH ×2 (06:07→17:36)
[2018-07-17] MEDS: Pro-Stat SF 30ml Vanilla GT SCH ×2 (08:00→17:37)
[2018-07-17] MEDS: PANTOPRAZOLE 40 MG/10 ML VIAL IV SCH (09:34)
[2018-07-17] MEDS: DIGOXIN (250MCG/ML) 2 ML AMPULE IV SCH (09:35)
[2018-07-17] MEDS: THIAMINE 100mg/ml INJ (200mg/2ml VIAL) IV SCH (09:35)
[2018-07-17] MEDS: BUMETANIDE (0.25MG/ML) 4 ML VIAL IV SCH (09:35)
[2018-07-17] MEDS: POTASSIUM EFFERVESENT TAB 25 MEQ GT SCH (09:36)
[2018-07-17] MEDS: APIXABAN 5 MG TAB PO SCH ×2 (09:36→22:06)
[2018-07-17] MEDS: AMIODARONE HCL 200 MG TAB PO SCH (09:36)
[2018-07-17] MEDS: SACUBITRIL-VALSARTAN 24mg/26mg TAB PO SCH ×2 (09:36→22:05)
[2018-07-17] MEDS: SODIUM CHLOR 0.9% PF (SALINE LOCK) 10ML VIAL/SYR IV SCH ×2 (10:00→22:08)
[2018-07-17] MEDS: METOCLOPRAMIDE HCL 5MG/ml INJ 2ml VIAL IV SCH ×2 (10:34→22:06)
[2018-07-17] MEDS ORDERED: PROMETHAZINE HCL 25 MG/ML 1ML IV PRN (12:15)
[2018-07-17] MEDS: CARVEDILOL 3.125 MG TAB PO SCH (22:07)
[2018-07-18] VITALS (37 sets, daily range): BP systolic 87–141; BP diastolic 47–88
[2018-07-18] MEDS: NOREPINEPHRINE 8 MG/250ML KIT 250 ML IV SCH (01:00)
[2018-07-18] MEDS: HYDROcodone-ACET 10/325MG TAB PO PRN ×3 (01:24→19:30)
[2018-07-18] MEDS: Jevity 1.2 Cal/Fiber 1 Liter GT SCH ×3 (02:00→11:53)
[2018-07-18] MEDS: ALBUTEROL SULF 2.5 MG/0.5ML(0.5%) NEB SOLN NEB SCH ×6 (02:15→22:09)
[2018-07-18] MEDS: ACETYLCYSTEINE 20%(200MG/ML) SOL 4ML NEB SCH ×6 (02:15→22:09)
[2018-07-18] MEDS: IPRATROPIUM BROM 0.5 MG/2.5ML INH SOL NEB SCH ×6 (02:15→22:09)
[2018-07-18 04:16] LABS: Hematocrit 44.1 % (41.0-53.0); Mean Corpuscular Hemoglobin 29.3 pg (28.0-32.0); Mean Corpuscular Hgb Conc. 34.1 g/dL (32.0-36.0); Platelet Count (auto) 143 10^3/uL (140-450); Red Blood Cells 5.13 10^6/uL (4.5-5.90); Red Cell Distribution Width 16.5 % (11.8-14.3); White Blood Cell 6.4 10^3/uL (4.4-10.8)
[2018-07-18 04:18] LABS: Band Neutrophils % (manual) 0; Basophils % (manual) 0 (0.0-2.0); Blast Cells 0; Metamyelocytes % 0; Myelocytes % 0; Promyelocytes % 0; Reactive Lymphocytes 0
[2018-07-18 04:30] LABS: Albumin 2.5 g/dL (3.4-5.0); Bilirubin, Total 0.8 mg/dL (0.2-1.0); Calcium 8.9 mg/dL (8.5-10.1); Total Protein 6.8 g/dL (6.4-8.2)
[2018-07-18 04:49] LABS: Eosinophils % (manual) 2 (0-7); Lymphocytes % (manual) 18 (10.0-50.0); Monocytes % (manual) 13 (0-12)
[2018-07-18] MEDS: METOCLOPRAMIDE HCL 5MG/ml INJ 2ml VIAL IV SCH ×3 (05:50→22:07)
[2018-07-18] MEDS: SPIRONOLACTONE 25 MG TAB PO SCH ×2 (05:50→17:54)
[2018-07-18] MEDS: ACCU-CHEK COMFORT CURVE STRIP VI SCH ×2 (05:51→11:33)
[2018-07-18] MEDS: InsuLIN REG 1unit/0.01ml Soln (100units/ml) SC SCH ×2 (05:51→11:33)
[2018-07-18] MEDS: Pro-Stat SF 30ml Vanilla GT SCH ×2 (08:00→18:00)
[2018-07-18] MEDS: SACUBITRIL-VALSARTAN 24mg/26mg TAB PO SCH ×2 (09:42→22:07)
[2018-07-18] MEDS: THIAMINE 100mg/ml INJ (200mg/2ml VIAL) IV SCH (09:42)
[2018-07-18] MEDS: APIXABAN 5 MG TAB PO SCH ×2 (09:42→22:08)
[2018-07-18] MEDS: BUMETANIDE (0.25MG/ML) 4 ML VIAL IV SCH (09:42)
[2018-07-18] MEDS: POTASSIUM EFFERVESENT TAB 25 MEQ GT SCH (09:43)
[2018-07-18] MEDS: AMIODARONE HCL 200 MG TAB PO SCH (09:43)
[2018-07-18] MEDS: CARVEDILOL 3.125 MG TAB PO SCH ×2 (09:43→22:08)
[2018-07-18] MEDS: SODIUM CHLOR 0.9% PF (SALINE LOCK) 10ML VIAL/SYR IV SCH ×2 (09:44→22:09)
[2018-07-18] MEDS: DIGOXIN (250MCG/ML) 2 ML AMPULE IV SCH (11:09)
[2018-07-18] MEDS ORDERED: Jevity 1.2 Cal/Fiber 1 Liter GT SCH (13:45)
[2018-07-19] VITALS (36 sets, daily range): BP systolic 85–121; BP diastolic 45–77
[2018-07-19] MEDS: NOREPINEPHRINE 8 MG/250ML KIT 250 ML IV SCH (01:00)
[2018-07-19] MEDS: ACETYLCYSTEINE 20%(200MG/ML) SOL 4ML NEB SCH ×6 (02:18→22:20)
[2018-07-19] MEDS: IPRATROPIUM BROM 0.5 MG/2.5ML INH SOL NEB SCH ×6 (02:19→22:19)
[2018-07-19] MEDS: ALBUTEROL SULF 2.5 MG/0.5ML(0.5%) NEB SOLN NEB SCH ×6 (02:19→22:19)
[2018-07-19 04:00] LABS: Hematocrit 46.1 % (41.0-53.0); Hemoglobin 15.5 g/dL (13.5-17.5); Mean Corpuscular Hemoglobin 28.9 pg (28.0-32.0); Mean Corpuscular Hgb Conc. 33.6 g/dL (32.0-36.0); Platelet Count (auto) 188 10^3/uL (140-450); Red Blood Cells 5.36 10^6/uL (4.5-5.90); Red Cell Distribution Width 16.7 % (11.8-14.3); White Blood Cell 6.5 10^3/uL (4.4-10.8)
[2018-07-19 04:03] LABS: Basophils % (manual) 0 (0.0-2.0); Blast Cells 0; Metamyelocytes % 0; Myelocytes % 0; Promyelocytes % 0; Reactive Lymphocytes 0
[2018-07-19 04:10] LABS: Albumin 2.5 g/dL (3.4-5.0); Calcium 8.4 mg/dL (8.5-10.1); Potassium 3.8 mmol/L (3.5-5.1)
[2018-07-19 04:12] LABS: BUN/Creatinine Ratio 38.8
[2018-07-19 04:15] LABS: Total Protein 6.8 g/dL (6.4-8.2)
[2018-07-19 05:14] LABS: Band Neutrophils % (manual) 1; Eosinophils % (manual) 1 (0-7); Lymphocytes % (manual) 12 (10.0-50.0); Monocytes % (manual) 10 (0-12)
[2018-07-19] MEDS: METOCLOPRAMIDE HCL 5MG/ml INJ 2ml VIAL IV SCH ×3 (06:21→22:04)
[2018-07-19] MEDS: SPIRONOLACTONE 25 MG TAB PO SCH ×2 (06:21→17:31)
[2018-07-19] MEDS: HYDROcodone-ACET 10/325MG TAB PO PRN ×2 (06:38→17:32)
[2018-07-19] MEDS: Pro-Stat SF 30ml Vanilla GT SCH ×2 (08:00→17:32)
[2018-07-19] MEDS: THIAMINE 100mg/ml INJ (200mg/2ml VIAL) IV SCH (09:56)
[2018-07-19] MEDS: APIXABAN 5 MG TAB PO SCH ×2 (09:56→22:11)
[2018-07-19] MEDS: DIGOXIN (250MCG/ML) 2 ML AMPULE IV SCH (09:56)
[2018-07-19] MEDS: BUMETANIDE (0.25MG/ML) 4 ML VIAL IV SCH (09:59)
[2018-07-19] MEDS: SODIUM CHLOR 0.9% PF (SALINE LOCK) 10ML VIAL/SYR IV SCH ×2 (09:59→22:04)
[2018-07-19] MEDS: SACUBITRIL-VALSARTAN 24mg/26mg TAB PO SCH ×2 (10:00→23:20)
[2018-07-19] MEDS: AMIODARONE HCL 200 MG TAB PO SCH (10:00)
[2018-07-19] MEDS: CARVEDILOL 3.125 MG TAB PO SCH ×2 (10:00→22:11)
[2018-07-20] VITALS (31 sets, daily range): BP systolic 80–117; BP diastolic 35–70
[2018-07-20] MEDS: NOREPINEPHRINE 8 MG/250ML KIT 250 ML IV SCH (01:00)
[2018-07-20] MEDS: ACETAMINOPHEN 325 MG TAB PO PRN (02:07)
[2018-07-20] MEDS: IPRATROPIUM BROM 0.5 MG/2.5ML INH SOL NEB SCH ×5 (02:22→18:42)
[2018-07-20] MEDS: ACETYLCYSTEINE 20%(200MG/ML) SOL 4ML NEB SCH ×5 (02:22→18:42)
[2018-07-20] MEDS: ALBUTEROL SULF 2.5 MG/0.5ML(0.5%) NEB SOLN NEB SCH ×5 (02:22→18:42)
[2018-07-20 04:33] LABS: BUN/Creatinine Ratio 41.3; Calcium 8.4 mg/dL (8.5-10.1)
[2018-07-20] MEDS: METOCLOPRAMIDE HCL 5MG/ml INJ 2ml VIAL IV SCH ×3 (06:13→20:18)
[2018-07-20] MEDS: Pro-Stat SF 30ml Vanilla GT SCH ×2 (08:00→18:10)
[2018-07-20] MEDS: CARVEDILOL 3.125 MG TAB PO SCH ×2 (10:41→20:18)
[2018-07-20] MEDS: APIXABAN 5 MG TAB PO SCH ×2 (10:41→20:17)
[2018-07-20] MEDS: AMIODARONE HCL 200 MG TAB PO SCH (10:41)
[2018-07-20] MEDS: SACUBITRIL-VALSARTAN 24mg/26mg TAB PO SCH ×2 (10:41→20:18)
[2018-07-20] MEDS: BUMETANIDE (0.25MG/ML) 4 ML VIAL IV SCH (10:42)
[2018-07-20] MEDS: THIAMINE 100mg/ml INJ (200mg/2ml VIAL) IV SCH (10:42)
[2018-07-20] MEDS: DIGOXIN (250MCG/ML) 2 ML AMPULE IV SCH (10:42)
[2018-07-20] MEDS: HYDROcodone-ACET 10/325MG TAB PO PRN ×2 (10:44→20:17)
[2018-07-20] MEDS: SODIUM CHLOR 0.9% PF (SALINE LOCK) 10ML VIAL/SYR IV SCH ×2 (10:46→20:18)
== END 2018-07-20 21:16 | DRG 5 ==
LOC: ER 06:53 → EDBD 06:53 → TELE 06:54 → ICU WEST 15:03
PROVIDERS: ADMIT Internal Medicine; ATTEND Internal Medicine
PROC: 5A1955Z Respiratory Ventilation, Greater than 96 Consecutive Hours (ICD-10-PCS; principal; 2018-06-16)
PROC: 0BDB8ZX Extraction of Left Lower Lobe Bronchus, Via Natural or Artificial Opening Endoscopic, Diagnostic (ICD-10-PCS; 2018-06-24)
PROC: 0BD48ZX Extraction of Right Upper Lobe Bronchus, Via Natural or Artificial Opening Endoscopic, Diagnostic (ICD-10-PCS; 2018-06-24)
PROC: 0BD88ZX Extraction of Left Upper Lobe Bronchus, Via Natural or Artificial Opening Endoscopic, Diagnostic (ICD-10-PCS; 2018-06-24)
PROC: 0BD58ZX Extraction of Right Middle Lobe Bronchus, Via Natural or Artificial Opening Endoscopic, Diagnostic (ICD-10-PCS; 2018-06-24)
PROC: 0BD68ZX Extraction of Right Lower Lobe Bronchus, Via Natural or Artificial Opening Endoscopic, Diagnostic (ICD-10-PCS; 2018-06-24)
PROC: 0B9J8ZX Drainage of Left Lower Lung Lobe, Via Natural or Artificial Opening Endoscopic, Diagnostic (ICD-10-PCS; 2018-06-24)
PROC: 0B9C8ZX Drainage of Right Upper Lung Lobe, Via Natural or Artificial Opening Endoscopic, Diagnostic (ICD-10-PCS; 2018-06-24)
PROC: 0B9G8ZX Drainage of Left Upper Lung Lobe, Via Natural or Artificial Opening Endoscopic, Diagnostic (ICD-10-PCS; 2018-06-24)
PROC: 0B9D8ZX Drainage of Right Middle Lung Lobe, Via Natural or Artificial Opening Endoscopic, Diagnostic (ICD-10-PCS; 2018-06-24)
PROC: 0B9F8ZX Drainage of Right Lower Lung Lobe, Via Natural or Artificial Opening Endoscopic, Diagnostic (ICD-10-PCS; 2018-06-24)
PROC: 4A023N8 Measurement of Cardiac Sampling and Pressure, Bilateral, Percutaneous Approach (ICD-10-PCS; 2018-06-25)
PROC: B2111ZZ Fluoroscopy of Multiple Coronary Arteries using Low Osmolar Contrast (ICD-10-PCS; 2018-06-25)
PROC: B2151ZZ Fluoroscopy of Left Heart using Low Osmolar Contrast (ICD-10-PCS; 2018-06-25)
PROC: 02HV33Z Insertion of Infusion Device into Superior Vena Cava, Percutaneous Approach (ICD-10-PCS; 2018-07-01)
PROC: 0BD78ZX Extraction of Left Main Bronchus, Via Natural or Artificial Opening Endoscopic, Diagnostic (ICD-10-PCS; 2018-07-01)
PROC: 0B110F4 Bypass Trachea to Cutaneous with Tracheostomy Device, Open Approach (ICD-10-PCS; 2018-07-07)
PROC: 5A1955Z Respiratory Ventilation, Greater than 96 Consecutive Hours (ICD-10-PCS; 2018-07-07)
DX: A41.9 Sepsis, unspecified organism (principal); I21.4 Non-ST elevation (NSTEMI) myocardial infarction; I26.99 Other pulmonary embolism without acute cor pulmonale; E43 Unspecified severe protein-calorie malnutrition; J15.211 Pneumonia due to Methicillin susceptible Staphylococcus aureus; J96.21 Acute and chronic respiratory failure with hypoxia; G92 Toxic encephalopathy; J15.4 Pneumonia due to other streptococci; E87.4 Mixed disorder of acid-base balance; J96.01 Acute respiratory failure with hypoxia; D69.6 Thrombocytopenia, unspecified; E11.22 Type 2 diabetes mellitus with diabetic chronic kidney disease; J96.02 Acute respiratory failure with hypercapnia; D75.1 Secondary polycythemia; E87.1 Hypo-osmolality and hyponatremia; J44.1 Chronic obstructive pulmonary disease with (acute) exacerbation; L03.115 Cellulitis of right lower limb; L03.116 Cellulitis of left lower limb; N18.2 Chronic kidney disease, stage 2 (mild); I13.0 Hypertensive heart and chronic kidney disease with heart failure and stage 1 through stage 4 chronic kidney disease, or unspecified chronic kidney disease; E87.6 Hypokalemia; F32.9 Major depressive disorder, single episode, unspecified; I27.20 Pulmonary hypertension, unspecified; I42.0 Dilated cardiomyopathy; I45.10 Unspecified right bundle-branch block; I42.7 Cardiomyopathy due to drug and external agent; I48.92 Unspecified atrial flutter; I50.43 Acute on chronic combined systolic (congestive) and diastolic (congestive) heart failure; J44.0 Chronic obstructive pulmonary disease with (acute) lower respiratory infection; J96.22 Acute and chronic respiratory failure with hypercapnia; F15.10 Other stimulant abuse, uncomplicated; F17.210 Nicotine dependence, cigarettes, uncomplicated; G93.1 Anoxic brain damage, not elsewhere classified; H57.02 Anisocoria; I48.91 Unspecified atrial fibrillation; I50.82 Biventricular heart failure; K75.9 Inflammatory liver disease, unspecified; T17.890A Other foreign object in other parts of respiratory tract causing asphyxiation, initial encounter; F41.9 Anxiety disorder, unspecified; T17.590A Other foreign object in bronchus causing asphyxiation, initial encounter; X58.XXXA Exposure to other specified factors, initial encounter; Y93.89 Activity, other specified; Z79.02 Long term (current) use of antithrombotics/antiplatelets; Z86.711 Personal history of pulmonary embolism; Z99.11 Dependence on respirator [ventilator] status; Y92.89 Other specified places as the place of occurrence of the external cause; Z68.27 Body mass index [BMI] 27.0-27.9, adult; Z79.899 Other long term (current) drug therapy
CPT/HCPCS: 31500; 36415; 36556; 36569; 36600; 51702; 70450; 71045; 71260; 71275; 74177; 76604; 80048; 80053; 80162; 80202; 80307; 80320; 81001; 82805; 82962; 83605; 83735; 83880; 84100; 84132; 84484; 85007; 85025; 85027; 85379; 85610; 85730; 86704; 86706; 86708; 86803; 87040; 87070; 87077; 87081; 87086; 87186; 87205; 87340; 93005; 93306; 93970; 94002; 94003; 94640; 94644; 94667; 94668; 95819; 96372; 96374; 96375; 97110; 99152; 99291; A4605; A4618; A6257; C1751; C9113; J0171; J0330; J1815; J1956; J2001; J2250; J2325; J2405; J2543; J2704; J3480; J7060